=== PATIENT | female | born 1945 | race Caucasian/White ===

== ENCOUNTER 2018-04-07 13:04 | Inpatient (IN) ==
[2018-04-07 15:03] LABS: Albumin 5.5 g/dL (3.5-5.7); Albumin/Globulin Ratio 1.3 (1.1-2.2); Bilirubin,Direct 0.2 mg/dL (0.0-0.2); Bilirubin,Indirect 0.6 mg/dL (0.0-1.2); Bilirubin,Total 0.8 mg/dL (0.3-1.0); Globulin 4.1 g/dL (2.4-3.5); Total Protein 9.6 g/dL (6.4-8.9)
[2018-04-07] MEDS ORDERED: 0.9 % Sodium Chloride 1,000 ML IVC ONE ×2 (15:28→15:57)
[2018-04-07 16:10] LABS: Immature Granulocytes % 1.3 % (0-4)
[2018-04-07 16:11] LABS: Basophils # 0.1 K/mcL (0.0-0.2); Basophils % 0.6 %; Eosinophils % 0.1 %; Hematocrit 33.2 % (35.3-44.9); Hemoglobin 12.6 g/dL (11.5-15.4); Lymphocytes # 0.5 K/mcL (0.6-4.6); Lymphocytes % 5.1 %; Mean Corpuscular Hemoglobin 37.1 pg (28.0-33.3); Mean Corpuscular Volume 97.6 fL (83.0-100.0); Mean Platelet Volume 9.3 fL (9.4-12.4); Monocytes # 0.9 K/mcL (0.0-1.3); Monocytes % 10.4 %; Platelet Count 525 K/mcL (140-400); Red Cell Distribution Width 14.8 % (11.5-14.5); Segmented Neutrophils % 82.5 %
[2018-04-07 16:16] LABS: Neutrophils # 7.4 K/mcL (1.6-8.9)
--- NOTE | 2018-04-07 16:24 | Emergency Department Note ---
Disposition Clinical Impression: Hyponatremia, Acute kidney injury (nontraumatic), Dehydration Nausea and vomiting Qualifiers: Vomiting type: unspecified Vomiting Intractability: non-intractable Qualified Code(s): R11.2 - Nausea with vomiting, unspecified Crohn disease Qualifiers: Gastrointestinal tract location: unspecified location Digestive disease complication type: without complication Qualified Code(s): K50.90 - Crohn's disease, unspecified, without complications Disposition: Admitted As Inpatient Condition: Good Referrals: Yunier Gallego DO [Primary Care Provider] - Forms: ED Satisfaction Letter General Adult HPI - General Chief complaint: ED Nausea/Vomiting/Diarrhea Stated complaint: N/V Time Seen by Provider: 04/07/18 15:24 Source: patient Limitations: no limitations - History of Present Illness HPI Narrative: Patient presents with approximately 10 days of nausea, vomiting and anorexia. Anytime she eats something, he vomits. When she does not eat or drink anything , she retches. She feels weak and fatigued. Has not had lightheadedness, dizziness, syncope, presyncope or confusion. She was recently treated with amoxicillin for a "upper respiratory infection" from urgent care. She continues to have a cough, the other symptoms have relented. She has not had diarrhea. She does have a history of Crohn disease, but her output has been normal. No chest pain, palpitations or shortness of breath. No urinary tract symptoms, although her urine output has significantly decreased. No abdominal pain. No headache or neck pain. Not currently nauseous. Pain Scale: 8 - Related Data Previous Rx's Medication Instructions Recorded Amoxicillin/Clavulanate [Augmentin] 875 mg PO BIDWM 5 Days #10 tablet 04/02/18 Benzonatate [Tessalon] 200 mg PO TID PRN #45 capsule 04/02/18 Cetirizine HCl [Zyrtec] 10 mg PO DAILY #90 tablet 04/02/18 Fluticasone Propionate Nasal 16 gm NS DAILY PRN #1 bottle 04/02/18 [Flonase] Allergies Allergy/AdvReac Type Severity Reaction Status Date / Time No Known Allergies Allergy Verified 04/02/18 14:16 All systems ED: reviewed and negative except as stated. Past Medical History - Past Medical History PMF Narrative: She tells me that she takes Remicaide for her Crohn's disease, and takes vitamins - no other long-term medications. Medical history: Reports: dementia, osteoporosis Surgical history: Reports: non-contributory Psychiatric history: Reports: no psych history - Social History Smoking Status: Current every day smoker Smokeless Tobacco Status: No Alcohol use: Reports: occasionally Drug use: Reports: none Physical Exam Vital signs noted please see nurse's notes. Gen.: Well-developed, very thin patient lying in bed who appears nontoxic. Head: Atraumatic, normocephalic. Eyes: Sclerae anicteric. ENT: Mucous membranes dry. Heart: Mildly tachycardic and regular without appreciable murmur. Lungs: Normal respiratory pattern without respiratory distress, lungs clear to auscultation bilaterally. Abdomen: Soft, nontender, nondistended, no guarding or peritoneal signs. Ostomy is noted. Skin: Warm and dry without rash. Neurologic: Awake, alert with normal speech and mental status. Cranial nerves grossly intact. No focal deficits or lateralizing signs. Psychiatric: Normal mood and affect. Musculoskeletal: No peripheral edema. No signs of trauma or DVT. - General Limitations: no limitations General appearance: alert Course Vital Signs Temperature 97.7 F 04/07/18 13:24 Pulse Rate 106 04/07/18 13:24 Respiratory Rate 16 04/07/18 13:24 Blood Pressure 101/63 04/07/18 13:24 O2 Sat by Pulse Oximetry 94 04/07/18 13:24 Temperature 97.7 F 04/07/18 13:24 Pulse Rate 97 04/07/18 15:38 Respiratory Rate 22 04/07/18 15:38 Blood Pressure 120/80 04/07/18 15:38 O2 Sat by Pulse Oximetry 94 04/07/18 13:24 Oxygen Delivery Oxygen Delivery Room Air Medical Decision Making - MDM Narrative Medical decision making narrative: The patient remained hemodynamically stable during her time in the emergency department. Brown catheter was placed, since she was not producing any urine and we wanted to monitor her urine output given her acute kidney injury. Old records reviewed, she does not have a prior history of hyponatremia or of kidney failure, consistent with the history that she gave me. I started normal saline at 80 mL per hour. Added a magnesium and phosphorus level, which are currently pending. She has had no symptoms of hyponatremia other than the nausea and vomiting, and it is impossible to know whether the nausea and vomiting with lack of by mouth intake was the cause or the effect of her hyponatremia. She has had no change in mentation, no muscle cramps, no seizure activity, etc. I spoke with Dr. Nash environmental services director for nephrology, who agreed with the management at this point, he requested that we keep her on 80 mL per hour of normal saline overnight. I paged the hospitalist to arrange for admission. Critical care time: I was directly primarily involved in the care of this patient for 35 minutes extruding procedures. - Lab Data Result diagrams: 04/07/18 15:14 04/07/18 14:25 Lab Results 04/07/18 04/07/18 04/07/18 Range/Units 14:25 15:14 15:14 WBC 9.0 (4.3-11.1) K/mcL RBC 3.40 L (3.82-4.97) M/mcL Hgb 12.6 (11.5-15.4) g/dL Hct 33.2 L (35.3-44.9) % MCV 97.6 D (83.0-100.0) fL MCH 37.1 H (28.0-33.3) pg MCHC 38.0 H (31.6-35.5) g/dL RDW 14.8 H (11.5-14.5) % Plt Count 525 H (140-400) K/mcL MPV 9.3 L (9.4-12.4) fL Immature Gran % 1.3 (0-4) % Seg Neutrophils % 82.5 % Lymphocytes % 5.1 % Monocytes % 10.4 % Eosinophils % 0.1 % Basophils % 0.6 % Neutrophils # 7.4 (1.6-8.9) K/mcL Lymphocytes # 0.5 L (0.6-4.6) K/mcL Monocytes # 0.9 (0.0-1.3) K/mcL Eosinophils # 0.0 (0.0-0.6) K/mcL Basophils # 0.1 (0.0-0.2) K/mcL Sodium 115 L* (136-145) mEq/L Potassium 4.0 (3.5-5.1) mEq/L Chloride 79 L (98-107) mEq/L Carbon Dioxide 15 L (23-29) mEq/L BUN 128 H (8-23) mg/dL Creatinine 3.12 H (0.60-1.20) mg/dL Est GFR ( Amer) 18 L (> 60) Est GFR (Non-Af Amer) 15 L (> 60) BUN/Creatinine Ratio 41 H (6-26) Glucose 165 H (70-105) mg/dL Calculated Osmolality 285 (280-300) Calcium 11.0 H (8.6-10.3) mg/dL Total Bilirubin 0.8 (0.3-1.0) mg/dL Direct Bilirubin 0.2 (0.0-0.2) mg/dL Indirect Bilirubin 0.6 (0.0-1.2) mg/dL AST 26 (13-39) Units/L ALT 22 (7-52) Units/L Alkaline Phosphatase 61 (34-104) Units/L Serum Total Protein 9.6 H (6.4-8.9) g/dL Albumin 5.5 (3.5-5.7) g/dL Globulin 4.1 H (2.4-3.5) g/dL Albumin/Globulin Ratio 1.3 (1.1-2.2) Lipase 92 H (11-82) Units/L Specimen Rejected MCV Delta
[2018-04-07 16:50] LABS: Magnesium 2.7 mg/dL (1.6-2.6); Phosphorous 8.9 mg/dL (2.7-4.5)
[2018-04-07] MEDS ORDERED: Ipratropium/Albuterol Neb 3 ML IH PRN (17:43)
[2018-04-07] MEDS ORDERED: Acetaminophen 325 MG TABLET PO PRN (17:43)
[2018-04-07] MEDS ORDERED: Ondansetron 4 MG/2 ML VIAL IVP PRN (17:48)
[2018-04-07] MEDS ORDERED: Naloxone 0.4 MG/ML INJ IVP PRN (17:48)
[2018-04-07] MEDS ORDERED: OXYCODONE Oral CONC 10 MG/0.5 ML ORAL.SYG SL PRN ×2 (17:48)
[2018-04-07 17:50] LABS: Bilirubin,Urine Negative (Negative); Blood,Urine Negative (Negative); Clarity,Urine Cloudy (Clear); Color,Urine Yellow (Yellow); Glucose,Urine (UA) Normal (Normal); Ketones,Urine Negative (Negative); Leukocyte Esterase,Urine Negative (Negative); Nitrite,Urine Negative (Negative); Protein,Urine 30 mg/dL (Neg-Trace); Specific Gravity,Urine 1.023 (1.010-1.025); Urobilinogen,Urine Normal (Normal)
--- NOTE | 2018-04-07 17:51 | Internal Med History&Physical ---
Date of Encounter: 04/07/18 Time of Encounter: 17:48 Internal Medicine - H&P: HPI Chief complaint: Nausea and vomiting Admitted From: Emergency Dept History of present illness: Ms. Grey is a 72 year old female with a past medical history of chronic hyponatremia, chronic kidney disease stage III, Crohn's disease, history of ileostomy in March 2010 who came to emergency room complaining of severe nausea vomiting and anorexia for the past 10 days, she has not been able to keep anything down most of those days. Today her sodium is 115. Creatinine has increased from a baseline of 0.85 up to 3.12 today, 3 days ago she started taking amoxicillin for an upper respiratory infection but her symptoms have not improved, she still complaining of yellowish phlegm, chest x-ray shows a left lower lobe pneumonia. Platelets are 525 magnesium 2.7 phosphorus 8.9, calcium 11, patient has been complaining of lower abdominal cramps. No sick contacts or recent traveling, very little output from her ileostomy. Past Med Surg Social Fam HX - Past Medical History Medical history: dementia, osteoporosis, other (Crohn's disease, diverticulosis , chronic kidney disease stage III, chronic hyponatremia, tobacco abuse) Psychiatric history: no psych history - Past Surgical History Surgical History: other (Ileostomy in 2009, rectal fistula) - Social History Smoking Status: Current every day smoker Packs per day: Half pack per day Smokeless Tobacco Status: No Alcohol use: occasionally Drug use: none - Additional Family History Additional family history: Father with CVA Internal Medicine - H&P: Meds Amoxicillin/Clavulanate [Augmentin] 875 mg PO BIDWM 5 Days #10 tablet 04/02/18 [ Rx] Benzonatate [Tessalon] 200 mg PO TID PRN #45 capsule 04/02/18 [Rx] Cetirizine HCl [Zyrtec] 10 mg PO DAILY #90 tablet 04/02/18 [Rx] Fluticasone Propionate Nasal [Flonase] 16 gm NS DAILY PRN #1 bottle 04/02/18 [Rx ] 3 Allergy/AdvReac Type Severity Reaction Status Date / Time No Known Allergies Allergy Verified 04/02/18 14:16 All Systems PM: A 10-system review of systems was performed and is negative for pertinent findings except as documented above in the HPI. Review of systems: History of breath, denies any chest pain, chills, other systems out of the 10 reviewed were negative, no urine analysis having performed - Constitutional Vitals: Temp Pulse Resp BP Pulse Ox 97.7 F 85 16 120/80 97 04/07/18 13:24 04/07/18 17:14 04/07/18 17:14 04/07/18 15:38 04/07/18 17:14 General appearance: Present: A&O X 3 (Very dehydrated), underweight - Head Head exam: Present: atraumatic, normocephalic - Eye Eye exam: Present: PERRL, conjuntiva pink, sclera anicteric Pupils: Present: PERRL - Neck Neck exam general surgery: Present: supple, trachea midline. Absent: lymphadenopathy - Respiratory Respiratory exam: Present: CTAB. Absent: accessory muscle use, rales, rhonchi, wheezes Additional comments: Left basilar crackles - Cardiovascular Cardiovascular exam: Present: RRR, +S1, +S2. Absent: diastolic murmur, gallop, rubs, systolic murmur - GI/Abdominal GI/Abdominal exam: Present: normal bowel sounds, soft, no peritoneal signs. Absent: distended, tenderness Additional comments: Diminished bowel sounds, ileostomy in place - Extremities Exam Extremities exam: Present: warm, radial pulses palpable and symmetrical. Absent : calf tenderness, cyanotic, pedal edema - Neurological Exam Neurological exam: Present: CN II-XII intact, oriented X3, no focal deficits. Absent: pronater drift, facial droop, speech deficit - Skin Skin exam: Present: dry, intact Internal Med - H&P Results - Labs CBC & Chem 7: 04/07/18 15:14 04/07/18 14:25 - Assessment and plan (1) Acute kidney injury (nontraumatic) Current Visit: Yes Status: Acute Assessment and plan: Acute renal failure secondary to severe dehydration due to intractable nausea and vomiting and also community-acquired pneumonia IV fluids, start Levaquin Blood cultures Consider nephrology consult if not improving Order a UA Hydralazine IV as needed for accelerated hypertension Protonix for GI prophylaxis and subcutaneous tenderness heparin for DVT prophylaxis. The patient will be admitted as inpatient, expected to stay more than 2 midnights. DNR CC arrest accepting intubation, time spent on this admission 40 minutes (2) Hyponatremia Current Visit: Yes Status: Acute Assessment and plan: Acute on chronic hyponatremia exacerbated by intractable vomiting Continue normal saline, increase sodium no faster than 0.5 mEq per hour Measure sodium every [address] scan of the abdomen (3) Community acquired pneumonia Current Visit: Yes Status: Acute Qualifiers: Laterality: left Lung location: lower lobe of lung Qualified Code(s): J18.1 - Lobar pneumonia, unspecified organism (4) Hypermagnesemia Current Visit: Yes Status: Acute (5) Crohn disease Current Visit: Yes Status: Acute Assessment and plan: on Imuran and Remicade Qualifiers: Gastrointestinal tract location: unspecified location Digestive disease complication type: without complication Qualified Code(s): K50.90 - Crohn's disease, unspecified, without complications (6) Dehydration Current Visit: Yes Status: Acute (7) Nausea and vomiting Current Visit: Yes Status: Acute Qualifiers: Vomiting type: unspecified Vomiting Intractability: non-intractable Qualified Code(s): R11.2 - Nausea with vomiting, unspecified - Time Spent With Patient Total time spent is greater than 50% in coordination of care (as documented) at patient's floor/unit and/or counseling patient:
[2018-04-07 17:53] LABS: Bacteria,Urine None Seen per hpf (None-Few); Hyaline Casts,Urine None Seen per lpf (None-Few); Squamous Epithelial Cell,Urine Many per lpf (None-Few)
[2018-04-07] MEDS ORDERED: Levofloxacin 750 MG/150 ML 750 MG/150 ML BAG IVPB ONE (18:00)
[2018-04-07 18:07] LABS: RBC,Urine 0-3 per hpf (0-3)
[2018-04-07 20:27] LABS: Troponin I 0.03 ng/mL (< 0.04)
[2018-04-07] MEDS: Nicotine 14 MG PATCH.TD24 TD SCH (21:28)
[2018-04-07] MEDS: Pantoprazole 40 MG VIAL IVP SCH (21:28)
[2018-04-07] MEDS: 0.9 % Sodium Chloride 1,000 ML IVC SCH (21:28)
[2018-04-07] MEDS: *HR* Heparin 5,000 UNIT/ML VIAL SQ SCH (21:28)
[2018-04-07 22:01] LABS: Bilirubin,Urine Negative (Negative); Blood,Urine Negative (Negative); Clarity,Urine Cloudy (Clear); Color,Urine Yellow (Yellow); Glucose,Urine (UA) 100 mg/dL (Normal); Ketones,Urine Negative (Negative); Leukocyte Esterase,Urine Negative (Negative); Nitrite,Urine Negative (Negative); Protein,Urine Trace mg/dL (Neg-Trace); Urobilinogen,Urine Normal (Normal)
[2018-04-07 22:03] LABS: Bacteria,Urine None Seen per hpf (None-Few); Hyaline Casts,Urine None Seen per lpf (None-Few); Squamous Epithelial Cell,Urine Many per lpf (None-Few)
[2018-04-08] MEDS: *HR* Heparin 5,000 UNIT/ML VIAL SQ SCH ×2 (04:37→18:36)
[2018-04-08] MEDS ORDERED: OXYCODONE Oral CONC 10 MG/0.5 ML ORAL.SYG SL PRN (07:35)
[2018-04-08 07:43] LABS: Magnesium 2.1 mg/dL (1.6-2.6); Phosphorous 4.7 mg/dL (2.7-4.5); Potassium 3.5 mEq/L (3.5-5.1)
[2018-04-08 08:36] LABS: Basophils % 0.7 %; Eosinophils # 0.1 K/mcL (0.0-0.6); Eosinophils % 1.1 %; Hematocrit 26.2 % (35.3-44.9); Hemoglobin 9.9 g/dL (11.5-15.4); Immature Granulocytes % 1.5 % (0-4); Lymphocytes # 0.5 K/mcL (0.6-4.6); Lymphocytes % 9.4 %; Mean Corpuscular Hemoglobin 37.1 pg (28.0-33.3); Mean Corpuscular Volume 98.1 fL (83.0-100.0); Mean Platelet Volume 9.2 fL (9.4-12.4); Monocytes # 0.9 K/mcL (0.0-1.3); Monocytes % 16.5 %; Platelet Count 393 K/mcL (140-400); Red Blood Count 2.67 M/mcL (3.82-4.97); Segmented Neutrophils % 70.8 %
[2018-04-08 08:39] LABS: Mean Corpuscular HGB Conc 37.8 g/dL (31.6-35.5); Neutrophils # 3.8 K/mcL (1.6-8.9)
[2018-04-08] MEDS: 0.9 % Sodium Chloride 1,000 ML IVC SCH (09:55)
[2018-04-08] MEDS: Pantoprazole 40 MG VIAL IVP SCH (09:56)
[2018-04-08] MEDS: Ampicillin/Sulbactam 3,000 MG in 0.9 % Sodium Chloride Mini Bag 100 ML IVPB SCH (13:00)
--- NOTE | 2018-04-08 14:48 | Electrocardiograph Report ---
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
--- NOTE | 2018-04-08 15:01 | Nephrology Consult Note ---
Date of Encounter: 04/08/18 Time of Encounter: 14:35 Assessment and Plan (1) JORDYN (acute kidney injury) Current Visit: Yes Status: Acute JORDYN, hx chronic hyponatremia, metabolic acidosis in setting of GI losses. Renal fct and sodium improving, bicarb 10. Will change IV fluids to 0.45 NS with Bicarb. Accurat I&O, Avoid nephrotoxins. Will continue to monitor. (2) Hyponatremia Current Visit: Yes Status: Acute History of Present Illness - Reason for Consult Acute Kidney Injury - History of Present Illness Ms. Grey is a 72 year old female who presented to ER yesterday with nausea and vomiting for past 10 days. She also admitted URI symptoms and states she was seen at urgent care several days ago and placed on Amoxicillin. She has a history of crohns with ileostomy since 2009, on Remicaide. and follows with Dr. Matos. She denies increase in ileostomy output or decrease in urine output. States decreased food intake but drinking large amounts water. She state last emesis yesterday in ER. Initial creat 3.12, today renal fct improved, creat 1.98. Prior labs do not indicate history of CKD. She admits history of chronic hyponatremia but usually runs 131. Initial sodium 115, today 123. Current IV 0.9NS at 75 cc/hr. Urine negative. She denies swelling. She admits remote NSAID use but has been weeks since taking one Ibuprofen. Past Med Surg Social Fam HX - Past Medical History Medical history: dementia, osteoporosis, other Additional medical history: crohn's disease, has ileostomy Psychiatric history: no psych history - Past Surgical History Surgical History: other Additional surgical history: part of small and large bowel removed. - Social History Smoking Status: Current every day smoker Packs per day: Half pack per day Smokeless Tobacco Status: No Alcohol use: occasionally Drug use: none Medications and Allergies Amoxicillin/Clavulanate [Augmentin] 875 mg PO BIDWM 5 Days #10 tablet 04/02/18 [ Rx] Benzonatate [Tessalon] 200 mg PO TID PRN #45 capsule 04/02/18 [Rx] Cetirizine HCl [Zyrtec] 10 mg PO DAILY #90 tablet 04/02/18 [Rx] Fluticasone Propionate Nasal [Flonase] 16 gm NS DAILY PRN #1 bottle 04/02/18 [Rx ] 3 Allergy/AdvReac Type Severity Reaction Status Date / Time No Known Allergies Allergy Verified 04/02/18 14:16 Review of Systems All Systems: reviewed and no additional remarkable complaints except as stated Exam - Vital Signs Vital signs: Initial Vital Signs Temp Pulse Resp BP Pulse Ox 97.7 F 106 16 101/63 94 04/07/18 13:24 04/07/18 13:24 04/07/18 13:24 04/07/18 13:24 04/07/18 13:24 Vital Signs - Last 8 Hours Temp Pulse Resp BP Pulse Ox 04/08/18 12:05 99.0 F 107 20 148/58 94 04/08/18 07:42 98.1 F 83 14 102/57 96 Intake and Output 04/07/18 04/08/18 04/08/18 23:59 07:59 15:59 Intake Total 1000 / 1000 Output Total 850 / 850 Balance -850 / -850 1000 / 1000 Intake: IV Fluids 1000 / 1000 0.9 % Sodium Chloride 1,000 ML 1000 / 1000 @ 75 mls/hr IVC .[id number] [facility] Rx #:[id number] Oral 0 / 0 Output: Stool 250 / 250 Catheter 600 / 600 Other: Meal NPO Percent of Meal Consumed 0% Stool Consistency liquid Stool Color Green Weight 35.3 kg 35.4 kg Blood Glucose* 102 119 Patient Weight 04/08/18 23:59 Weight 35.4 kg - General Appearance General appearance: well-developed, well-nourished, appears started age EENT: mucous membranes moist Neck: no JVD Respiratory: clear Additional Comments: diminished Cardiology: no edema, regular rate, regular rhythm Gastrointestinal: hypoactive bowel sounds, no tenderness Additional Comments: ileostomy bag Integumentary: warm and dry Neurologic: alert and oriented x3 Psychiatric: mood/affect appropriate, cooperative Results - Lab Results 04/08/18 06:38 04/08/18 12:27 Most recent lab results Calcium 9.0 mg/dL (8.6-10.3) 04/08/18 06:38 Phosphorus 4.7 mg/dL (2.7-4.5) H 04/08/18 06:38 Magnesium 2.1 mg/dL (1.6-2.6) 04/08/18 06:38 Consult Discharge Plan - Plan Referrals: Yunier Gallego DO [Primary Care Provider] -
--- NOTE | 2018-04-08 17:44 | Internal Med Progress Note ---
Date of Encounter: 04/08/18 Time of Encounter: 17:40 - Assessment and plan (1) Community acquired pneumonia Current Visit: Yes Status: Acute Assessment and plan: Will continue on Levofloxacin for now. Qualifiers: Laterality: left Lung location: lower lobe of lung Qualified Code(s): J18.1 - Lobar pneumonia, unspecified organism (2) Crohn disease Current Visit: Yes Status: Acute Assessment and plan: not in exacerbation. will continue to monitor. Qualifiers: Gastrointestinal tract location: unspecified location Digestive disease complication type: without complication Qualified Code(s): K50.90 - Crohn's disease, unspecified, without complications (3) Dehydration Current Visit: Yes Status: Acute Assessment and plan: Contiue with IVF hydration. (4) Hypermagnesemia Current Visit: Yes Status: Acute Assessment and plan: Resolved. Mag 2.1 today (5) Nausea and vomiting Current Visit: Yes Status: Acute Assessment and plan: Improved. No recent N/V. Zofran prn Qualifiers: Vomiting type: unspecified Vomiting Intractability: non-intractable Qualified Code(s): R11.2 - Nausea with vomiting, unspecified (6) Hyponatremia Current Visit: Yes Status: Acute Assessment and plan: improving. up from 119 to 123. Could be related to PNA. Will check for legionella Ag. (7) JORDYN (acute kidney injury) Current Visit: Yes Status: Acute Assessment and plan: Renal function improving. Creatinine 3.12 down to 1.98. - Time Spent With Patient Total time spent is greater than 50% in coordination of care (as documented) at patient's floor/unit and/or counseling patient: less than 15 minutes - Subjective Interval history: Patient denies fever, chills, N/V, constipation, or diarrhea. Denies CP or SOB. - Constitutional Vitals: Temp Pulse Resp BP Pulse Ox 97.7 F 124 19 106/67 96 04/08/18 17:26 04/08/18 17:26 04/08/18 17:26 04/08/18 17:26 04/08/18 17:26 General appearance: Present: A&O X 3 (Very dehydrated), underweight - Head Head exam: Present: atraumatic, normocephalic - Eye Eye exam: Present: PERRL, conjuntiva pink, sclera anicteric Pupils: Present: PERRL - Neck Neck exam general surgery: Present: supple, trachea midline. Absent: lymphadenopathy - Respiratory Respiratory exam: Present: CTAB. Absent: accessory muscle use, rales, rhonchi, wheezes - Cardiovascular Cardiovascular exam: Present: RRR, +S1, +S2. Absent: diastolic murmur, gallop, rubs, systolic murmur - GI/Abdominal GI/Abdominal exam: Present: normal bowel sounds, soft, no peritoneal signs. Absent: distended, tenderness - Extremities Exam Extremities exam: Present: warm, radial pulses palpable and symmetrical. Absent : calf tenderness, cyanotic, pedal edema - Neurological Exam Neurological exam: Present: CN II-XII intact, oriented X3, no focal deficits. Absent: pronater drift, facial droop, speech deficit - Skin Skin exam: Present: dry, intact Internal Medicine: Result - Labs CBC & Chem 7: 04/08/18 06:38 04/08/18 12:27 Labs: Short CBC 04/08/18 Range/Units 06:38 WBC 5.4 (4.3-11.1) K/mcL Hgb 9.9 L D (11.5-15.4) g/dL Hct 26.2 L (35.3-44.9) % Plt Count 393 (140-400) K/mcL Neutrophils # 3.8 (1.6-8.9) K/mcL BMP 04/07/18 04/08/18 04/08/18 19:53 00:26 06:38 Sodium 119 L* 118 L* 122 L Potassium Chloride Carbon Dioxide BUN Creatinine Glucose Calcium 04/08/18 04/08/18 04/08/18 06:38 09:04 12:27 Sodium 123 L 124 L 125 L Potassium 3.5 Chloride 96 L Carbon Dioxide 12 L BUN 101 H Creatinine 1.98 H Glucose 86 Calcium 9.0 Cardiac Enzymes 04/07/18 Range/Units 19:53 Troponin I 0.03 (< 0.04) ng/mL Urine 04/07/18 04/07/18 Range/Units 17:40 21:51 Urine Color Yellow Yellow (Yellow) Urine Clarity Cloudy A Cloudy A (Clear) Urine pH 5.0 5.0 (5.0-8.0) pH Units Ur Specific [place] 1.023 1.020 (1.010-1.025) Urine Protein 30 H Trace (Neg-Trace) mg/dL Urine Glucose (UA) Normal 100 H (Normal) mg/dL - EKG Interpretation EKG shows normal: sinus rhythm (moderate T wave abnormality no EKG on record for comparison.) - Impressions Impressions Abdomen/Pelvis CT 04/07/18 20:00 IMPRESSION: 1. No acute findings in the abdomen or pelvis. 2. Tree-in-bud opacities potentially representing infectious or aspiration bronchiolitis in both lung bases but predominantly in the lower lobes. 3. Consolidative opacities in the lower lobes at least in part representing atelectasis, possibly with superimposed pneumonia especially on the left. D/ / Boone Gutierrez MD / Boone Gutierrez MD Interpreting Provider: Boone Gutierrez MD - Diagnostic Studies CT scan - abdomen Additional comments: 04/07/2018 IMPRESSION: 1. No acute findings in the abdomen or pelvis. 2. Tree-in-bud opacities potentially representing infectious or aspiration bronchiolitis in both lung bases but predominantly in the lower lobes. 3. Consolidative opacities in the lower lobes at least in part representing atelectasis, possibly with superimposed pneumonia especially on the left. - VTE Deep Vein Thrombosis/Pulmonary Embolism Present on Admission: No Consult Discharge Plan - Plan Referrals: Yunier Gallego DO [Primary Care Provider] -
[2018-04-08] MEDS: Sodium Bicarbonate 100 MEQ in 0.45 % Sodium Chloride 1,000 ML IVC SCH (18:36)
--- NOTE | 2018-04-08 19:00 | Event Note ---
Date of Encounter: 04/08/18 Time of Encounter: 19:00 informed by nurse that tele monitor reading ischemia. Pt denies CP or SOB and vitals are stable BP 126/70, HR 86, RR 15. Will check EKG 12 lead and Stat troponin. Will cycle troponin
[2018-04-09] MEDS: Nicotine 14 MG PATCH.TD24 TD SCH ×2 (00:07→20:55)
[2018-04-09] MEDS: Ampicillin/Sulbactam 3,000 MG in 0.9 % Sodium Chloride Mini Bag 100 ML IVPB SCH ×2 (00:08→14:00)
[2018-04-09] MEDS: Sodium Bicarbonate 100 MEQ in 0.45 % Sodium Chloride 1,000 ML IVC SCH ×2 (06:40→19:49)
[2018-04-09] MEDS: *HR* Heparin 5,000 UNIT/ML VIAL SQ SCH ×2 (06:43→18:01)
[2018-04-09 08:18] LABS: Mean Platelet Volume 8.8 fL (9.4-12.4)
[2018-04-09 08:19] LABS: Basophils # 0.1 K/mcL (0.0-0.2); Basophils % 1.2 %; Eosinophils % 0.7 %; Hematocrit 27.3 % (35.3-44.9); Hemoglobin 10.1 g/dL (11.5-15.4); Immature Granulocytes % 1.6 % (0-4); Lymphocytes # 0.5 K/mcL (0.6-4.6); Mean Corpuscular Hemoglobin 37.3 pg (28.0-33.3); Mean Corpuscular Volume 100.7 fL (83.0-100.0); Monocytes # 1.1 K/mcL (0.0-1.3); Monocytes % 26.2 %; Platelet Count 405 K/mcL (140-400); Red Blood Count 2.71 M/mcL (3.82-4.97); Segmented Neutrophils % 59.3 %
[2018-04-09 08:21] LABS: Neutrophils # 2.6 K/mcL (1.6-8.9)
[2018-04-09 08:35] LABS: Reactive Lymphocytes Present (Not Present)
[2018-04-09 08:43] LABS: Albumin 3.5 g/dL (3.5-5.7); Albumin/Globulin Ratio 1.3 (1.1-2.2); Bilirubin,Total 0.6 mg/dL (0.3-1.0); Calcium 9.1 mg/dL (8.6-10.3); Globulin 2.7 g/dL (2.4-3.5); Potassium 2.9 mEq/L (3.5-5.1); Total Protein 6.2 g/dL (6.4-8.9)
--- NOTE | 2018-04-09 09:07 | Nephrology Progress Note ---
Date of Encounter: 04/09/18 Time of Encounter: 08:55 - Assessment and Plan (1) JORDYN (acute kidney injury) Current Visit: Yes Status: Acute JORDYN, hx chronic hyponatremia, metabolic acidosis in setting of GI losses. Renal fct improving, creat 1.18, sodium 136 bicarb 20. K 2.9, will order K rider. Will continue IV fluids to 0.45 NS with Bicarb. Accurate I&O, Avoid nephrotoxins. Will continue to monitor. (2) Hyponatremia Current Visit: Yes Status: Acute Subjective Interval history: Laying in bed, watching tv. States feeling better. Denies further emesis. Documented urine output 850cc Objective - Vital Signs Vital signs: Vital Signs Temp Pulse Resp BP Pulse Ox 04/09/18 07:02 98.4 F 78 15 117/61 96 04/09/18 03:57 98 F 82 14 107/65 96 04/09/18 01:01 97.8 F 96 14 107/66 95 04/08/18 22:33 98.1 F 101 15 111/67 96 04/08/18 17:26 97.7 F 124 19 106/67 96 04/08/18 12:05 99.0 F 107 20 148/58 94 Intake and Output 04/08/18 04/09/18 04/09/18 23:59 07:59 15:59 Intake Total 1000 / 1000 100 / 100 Output Total 1100 / 1100 Balance 1000 / 1000 -1000 / -1000 Intake: IV Fluids 1000 / 1000 100 / 100 0.9 % Sodium Chloride 1,000 ML 1000 / 1000 @ 75 mls/hr IVC .[id number] [facility] Rx #:[id number] Unasyn 3,000 MG In 0.9 % Sodium 100 / 100 Chloride (Mini-Bag +) 100 ML @ 200 mls/hr IVPB Q12H [facility] Rx#: [id number] Output: Urine 750 / 750 Catheter 350 / 350 Other: Weight 34.3 kg Blood Glucose* 89 92 Patient Weight 04/09/18 23:59 Weight 34.3 kg - General Appearance General appearance: Present: well-developed, appears started age, frail EENT: Present: mucous membranes moist Neck: Present: no JVD Respiratory: Present: clear Cardiology: Present: no edema, regular rate, regular rhythm Gastrointestinal: Present: hypoactive bowel sounds, no tenderness Additional Comments: ileostomy Integumentary: Present: warm and dry Neurologic: Present: alert and oriented x3 - Lab 04/09/18 08:06 04/09/18 08:06 Most recent lab results Calcium 9.1 mg/dL (8.6-10.3) 04/09/18 08:06 Phosphorus 4.7 mg/dL (2.7-4.5) H 04/08/18 06:38 Magnesium 2.1 mg/dL (1.6-2.6) 04/08/18 06:38 - VTE Deep Vein Thrombosis/Pulmonary Embolism Present on Admission: No Consult Discharge Plan - Plan Referrals: Yunier Gallego DO [Primary Care Provider] -
--- NOTE | 2018-04-09 09:52 | Internal Med Progress Note ---
Date of Encounter: 04/09/18 Time of Encounter: 09:50 - Assessment and plan (1) Community acquired pneumonia Current Visit: Yes Status: Acute Assessment and plan: Will continue on Levofloxacin and Unasyn for now. Qualifiers: Laterality: left Lung location: lower lobe of lung Qualified Code(s): J18.1 - Lobar pneumonia, unspecified organism (2) Crohn disease Current Visit: Yes Status: Acute Assessment and plan: Not in exacerbation. will continue to monitor. MAnages her own ostomy bag. Qualifiers: Gastrointestinal tract location: unspecified location Digestive disease complication type: without complication Qualified Code(s): K50.90 - Crohn's disease, unspecified, without complications (3) Dehydration Current Visit: Yes Status: Acute Assessment and plan: Improved on IVF. (4) Hypermagnesemia Current Visit: Yes Status: Acute Assessment and plan: corrected (5) Nausea and vomiting Current Visit: Yes Status: Acute Assessment and plan: Resolved. Pt denies any N/V today. Qualifiers: Vomiting type: unspecified Vomiting Intractability: non-intractable Qualified Code(s): R11.2 - Nausea with vomiting, unspecified (6) Hyponatremia Current Visit: Yes Status: Acute (7) JORDYN (acute kidney injury) Current Visit: Yes Status: Acute Assessment and plan: Resolving, Bun 128 on admission down to 58. Cr 3.12 on admission down to 1.18. Nephrology on board. Will continue to monitor renal function. (8) Abnormal EKG Current Visit: Yes Status: Acute Assessment and plan: Will obtain echo if one not done in past 6 months. Will consider consulting cardiology. ALso noted is troponin 0.05 now 0.10. Pt denies CP or SOB. (9) Hypokalemia Current Visit: Yes Status: Acute Assessment and plan: K replacement ordered today. Will recheck in am. - Time Spent With Patient Total time spent is greater than 50% in coordination of care (as documented) at patient's floor/unit and/or counseling patient: - Subjective Interval history: Patient denies fever, chills, N/V, constipation, or diarrhea. Denies CP or SOB. empties her own ostomy prn. - Constitutional Vitals: Temp Pulse Resp BP Pulse Ox 98.4 F 78 15 117/61 96 04/09/18 07:02 04/09/18 07:02 04/09/18 07:02 04/09/18 07:02 04/09/18 07:02 General appearance: Present: A&O X 3 (Very dehydrated), underweight - Head Head exam: Present: atraumatic, normocephalic - Eye Eye exam: Present: PERRL, conjuntiva pink, sclera anicteric Pupils: Present: PERRL - Neck Neck exam general surgery: Present: supple, trachea midline. Absent: lymphadenopathy - Respiratory Respiratory exam: Present: CTAB. Absent: accessory muscle use, rales, rhonchi, wheezes - Cardiovascular Cardiovascular exam: Present: RRR, +S1, +S2. Absent: diastolic murmur, gallop, rubs, systolic murmur - GI/Abdominal GI/Abdominal exam: Present: normal bowel sounds, soft, no peritoneal signs. Absent: distended, tenderness - Extremities Exam Extremities exam: Present: warm, radial pulses palpable and symmetrical. Absent : calf tenderness, cyanotic, pedal edema - Neurological Exam Neurological exam: Present: CN II-XII intact, oriented X3, no focal deficits. Absent: pronater drift, facial droop, speech deficit - Skin Skin exam: Present: dry, intact Internal Medicine: Result - Labs CBC & Chem 7: 04/09/18 08:06 04/09/18 08:06 Labs: Short CBC 04/09/18 Range/Units 08:06 WBC 4.3 (4.3-11.1) K/mcL Hgb 10.1 L (11.5-15.4) g/dL Hct 27.3 L (35.3-44.9) % Plt Count 405 H (140-400) K/mcL Neutrophils # 2.6 (1.6-8.9) K/mcL BMP 04/08/18 04/09/18 12:27 08:06 Sodium 125 L 136 D Potassium 2.9 L Chloride 101 Carbon Dioxide 20 L BUN 58 H Creatinine 1.18 Glucose 82 Calcium 9.1 Cardiac Enzymes 04/08/18 04/09/18 04/09/18 Range/Units 19:15 01:26 07:35 Troponin I 0.05 H* 0.11 H* 0.10 H* (< 0.04) ng/mL Liver Function 04/09/18 Range/Units 08:06 Total Bilirubin 0.6 (0.3-1.0) mg/dL AST 19 (13-39) Units/L ALT 13 (7-52) Units/L Alkaline Phosphatase 38 (34-104) Units/L Albumin 3.5 (3.5-5.7) g/dL - VTE Deep Vein Thrombosis/Pulmonary Embolism Present on Admission: No Consult Discharge Plan - Plan Referrals: Yunier Gallego DO [Primary Care Provider] -
--- NOTE | 2018-04-09 10:53 | Internal Med Progress Note ---
Date of Encounter: 04/09/18 - Assessment and plan (1) Hyponatremia Current Visit: Yes Status: Acute Assessment and plan: Acute on chronic hyponatremia exacerbated by intractable vomiting Continue normal saline, increase sodium no faster than 0.5 mEq per hour Measure sodium every [address] scan of the abdomen (2) Acute kidney injury (nontraumatic) Current Visit: Yes Status: Acute Assessment and plan: Acute renal failure secondary to severe dehydration due to intractable nausea and vomiting and also community-acquired pneumonia IV fluids, start Levaquin Blood cultures Consider nephrology consult if not improving Order a UA Hydralazine IV as needed for accelerated hypertension Protonix for GI prophylaxis and subcutaneous tenderness heparin for DVT prophylaxis. The patient will be admitted as inpatient, expected to stay more than 2 midnights. DNR CC arrest accepting intubation, time spent on this admission 40 minutes (3) Nausea and vomiting Current Visit: Yes Status: Acute Qualifiers: Vomiting type: unspecified Vomiting Intractability: non-intractable Qualified Code(s): R11.2 - Nausea with vomiting, unspecified (4) Dehydration Current Visit: Yes Status: Acute (5) Crohn disease Current Visit: Yes Status: Acute Qualifiers: Gastrointestinal tract location: unspecified location Digestive disease complication type: without complication Qualified Code(s): K50.90 - Crohn's disease, unspecified, without complications (6) Community acquired pneumonia Current Visit: Yes Status: Acute Qualifiers: Laterality: left Lung location: lower lobe of lung Qualified Code(s): J18.1 - Lobar pneumonia, unspecified organism (7) Hypermagnesemia Current Visit: Yes Status: Acute - Time Spent With Patient Total time spent is greater than 50% in coordination of care (as documented) at patient's floor/unit and/or counseling patient: - Constitutional Vitals: Temp Pulse Resp BP Pulse Ox 98.4 F 78 15 117/61 96 04/09/18 07:02 04/09/18 07:02 04/09/18 07:02 04/09/18 07:02 04/09/18 07:02 General appearance: Present: A&O X 3 (Very dehydrated), underweight Internal Medicine: Result - Labs CBC & Chem 7: 04/09/18 08:06 04/09/18 08:06 Labs: Short CBC 04/09/18 Range/Units 08:06 WBC 4.3 (4.3-11.1) K/mcL Hgb 10.1 L (11.5-15.4) g/dL Hct 27.3 L (35.3-44.9) % Plt Count 405 H (140-400) K/mcL Neutrophils # 2.6 (1.6-8.9) K/mcL BMP 04/08/18 04/09/18 12:27 08:06 Sodium 125 L 136 D Potassium 2.9 L Chloride 101 Carbon Dioxide 20 L BUN 58 H Creatinine 1.18 Glucose 82 Calcium 9.1 Cardiac Enzymes 04/08/18 04/09/18 04/09/18 Range/Units 19:15 01:26 07:35 Troponin I 0.05 H* 0.11 H* 0.10 H* (< 0.04) ng/mL Liver Function 04/09/18 Range/Units 08:06 Total Bilirubin 0.6 (0.3-1.0) mg/dL AST 19 (13-39) Units/L ALT 13 (7-52) Units/L Alkaline Phosphatase 38 (34-104) Units/L Albumin 3.5 (3.5-5.7) g/dL - VTE Deep Vein Thrombosis/Pulmonary Embolism Present on Admission: No Consult Discharge Plan - Plan Referrals: Yunier Gallego DO [Primary Care Provider] -
[2018-04-09] MEDS: Pantoprazole 40 MG VIAL IVP SCH (12:50)
--- NOTE | 2018-04-09 14:43 | Cardiology Consult Note ---
Date of Encounter: 04/09/18 Time of Encounter: 14:30 Assessment and Plan (1) Community acquired pneumonia Current Visit: Yes Status: Acute Per cardiology: -Admitted with CAP. -ON ATB. -Management per primary service. Qualifiers: Laterality: left Lung location: lower lobe of lung Qualified Code(s): J18.1 - Lobar pneumonia, unspecified organism (2) JORDYN (acute kidney injury) Current Visit: Yes Status: Acute Per cardiology: -Creatinine 3.12 on admission, improved currently. -Nephrology following. -ELectrolyte imbalances noted. -Management per primary service. (3) PAF (paroxysmal atrial fibrillation) Current Visit: Yes Status: Acute Per cardiology: -ECG 04/08/18 191 with atrial fibrillation. Denies previous history of a.fib. -TTE pending. -K 2.9, replaced per primary service. TSH normal. Magnesium normal. -[id number] score 2 (age, gender). Recommend chcf antiocoagulation. 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 (4) Elevated troponin Current Visit: Yes Status: Acute Per cardiology: -Troponins 0.03, 0.05, 0.11, 0.1 in the setting of pneumonia, JORDYN. -Denies chest pain. -ECG with -No previous cardiac testing to review. -TTE pending. -Do not suspect NSTEMI, suspect demand ischemia related to above. NO cardiac rehab consult warranted. -Will start ASA, statin, BB. -Further recommendations pending TTE. Discussion w patient/family: The assessment and plan as outlined above was discussed with the patient who expressed understanding and agreement. All questions were answered. Thank you for involving us in the care of your patient. Please call with any questions. Discussed and reviewed with . History of Present Illness Consult date: 04/09/18 Requesting physician: Tonie Cornell Consult reason: abnormal ECG Chief complaint: shortness of breath History of present illness: Ms. Grey is a 72 year old female with a relevant past medical history of chrons disease s/p resection and ileostomy, tobacco abuse who presented to [facility] with feeling "sick" for 10 days. Patient reports cough and increased shortness of breath. Patient denies chest pain. Patient denies previous cardiac history. Denies previous cardiac testing. Past Med Surg Social Fam HX - Past Medical History Attestation: Yes The following information was validated with the patient. Source: patient, old records reviewed Medical history: dementia, osteoporosis, other Additional medical history: crohn's disease, has ileostomy Psychiatric history: no psych history - Past Surgical History Surgical History: other Additional surgical history: part of small and large bowel removed. - Social History Smoking Status: Current every day smoker Packs per day: Half pack per day Smokeless Tobacco Status: No Alcohol use: occasionally Drug use: none Medications and Allergies Amoxicillin/Clavulanate [Augmentin] 875 mg PO BIDWM 5 Days #10 tablet 04/02/18 [ Rx] Benzonatate [Tessalon] 200 mg PO TID PRN #45 capsule 04/02/18 [Rx] Cetirizine HCl [Zyrtec] 10 mg PO DAILY #90 tablet 04/02/18 [Rx] Fluticasone Propionate Nasal [Flonase] 16 gm NS DAILY PRN #1 bottle 04/02/18 [Rx ] 3 Allergy/AdvReac Type Severity Reaction Status Date / Time No Known Allergies Allergy Verified 04/02/18 14:16 All Systems Review: The remainder of the systems were reviewed and are negative - Cardiovascular Cardiovascular: as per HPI, dyspnea at rest, dyspnea on exertion - Respiratory Respiratory: cough Physical Examination Vital Signs, Last 4 Hours Temp Pulse Resp BP Pulse Ox 04/09/18 10:51 98.1 F 94 15 110/61 96 General: Conversant, No Apparent Distress HEENT: Atraumatic, Normocephaly, Mucus Membranes Moist Neck: No JVD, Normal carotid pulses Cardiac: Reg Rate and Rhythm, Normal S1 and S2, No Murmur Lungs: Normal Breath Sounds, No Wheeze, Rales, Rhonchi Neuro: Alert and responsive, No focal deficits noted Abdomen: Soft, Non-Tender Skin: No rashes noted on visualized skin Musculoskeletal: No Chest Wall Tenderness Extremities: No Clubbing, No Cyanosis, No Edema, Normal Pulses Results 04/09/18 08:06 04/09/18 08:06 Lab Results Active Medications Acetaminophen (Tylenol) 650 mg PO Q4HR PRN PRN Reason: fever and mild pain Stop: 10/07/18 17:44 Albuterol/Ipratropium (Duoneb) 3 ml IH [id number] PRN; Protocol PRN Reason: Shortness Of Breath/Wheezing Stop: 10/07/18 17:44 Heparin Sodium (Porcine) (Heparin) 5,000 unit SQ Q12HCO [facility] Stop: 10/07/18 18:01 Last Admin: 04/09/18 06:43 Dose: 5,000 unit Hydralazine HCl (Hydralazine) 10 mg IVP Q6HR PRN PRN Reason: Hypertension Stop: 10/07/18 17:44 Ampicillin Sodium/Sulbactam Sodium 3,000 mg/ Sodium Chloride 100 mls @ 200 mls/ hr IVPB Q12H [facility] Stop: 10/08/18 11:31 Last Infusion: 04/09/18 02:17 Dose: Infused Sodium Bicarbonate 100 meq/ (Sodium Chloride) 1,100 mls @ 75 mls/hr IVC .[id number] [facility] Stop: 10/08/18 15:01 Last Admin: 04/09/18 06:40 Dose: Not Given Naloxone HCl (Narcan) 0.4 mg IVP Q2MIN PRN PRN Reason: SEE COMMENTS Stop: 10/07/18 17:49 Nicotine (Nicoderm) 14 mg TD Q24H [facility] PRN Reason: Protocol Stop: 10/07/18 19:16 Last Admin: 04/09/18 00:07 Dose: 14 mg Ondansetron HCl (Zofran) 4 mg IVP Q8HR PRN PRN Reason: Nausea And Vomiting Stop: 10/07/18 17:49 Oxycodone HCl (Oxycodone Oral Conc) 10 mg SL Q4H PRN; Protocol PRN Reason: Severe Pain Stop: 10/07/18 17:49 Oxycodone HCl (Oxycodone Oral Conc) 5 mg SL Q4H PRN; Protocol PRN Reason: Moderate Pain Stop: 10/07/18 17:49 Pantoprazole Sodium (Protonix) 40 mg IVP DAILY [facility] Stop: 10/07/18 17:46 Last Admin: 04/09/18 12:50 Dose: 40 mg Laboratory Tests 04/07/18 04/07/18 04/08/18 14:25 19:53 06:38 Hgb Potassium Creatinine 3.12 H Magnesium 2.1 Troponin I 0.03 04/08/18 04/09/18 04/09/18 19:15 01:26 07:35 Hgb Potassium Creatinine Magnesium Troponin I 0.05 H* 0.11 H* 0.10 H* 04/09/18 04/09/18 08:06 08:06 Hgb 10.1 L Potassium 2.9 L Creatinine 1.18 Magnesium Troponin I - Imaging and Cardiology Chest Xray: report reviewed Echo: pending - EKG Interpretation EKG results cardiology: personally reviewed (ECG 04/07/18 with SR, HR 85.), other (Telemetry reviewed with average HR previous 12 hours noted to be 98, SR.) Consult Discharge Plan - Plan Referrals: Yunier Gallego DO [Primary Care Provider] -
--- NOTE | 2018-04-09 15:55 | Event Note ---
Date of Encounter: 04/09/18 Time of Encounter: 15:51 Unable to edit consultation performed earlier today. Please consider this manifestation to that consultation. I have personally performed a face to face evaluation on this patient. I have reviewed and agree with the care plan. History and Exam by me shows: Consultation requested regarding abnormal ECG. Patient currently being treated for pneumonia. ECGs reviewed and demonstrates sinus rhythm, atrial fibrillation. Patient reports a history of palpitations, but has never been officially diagnosed with any arrhythmias. CHADS-VASc score 2. Although we would ideally recommend anticoagulation, patient reports a history of anemia/GI bleeds on a baby aspirin due to Crohn's disease. At this time, recommend BB. She does not appears to be an ideal candidate for aspirin or AC due to her history of GI bleed. TTE pending. Thanks, Angelito Ponce DO, FACC
[2018-04-09] MEDS ORDERED: Levofloxacin 500 MG/100 ML 500 MG/100 ML BAG IVPB SCH (18:00)
[2018-04-09] MEDS: Metoprolol XL (24 HR) Succ 25 MG TAB.ER.24H PO SCH (18:03)
[2018-04-10] MEDS ORDERED: Sodium Bicarbonate 100 MEQ in 0.45 % Sodium Chloride 1,000 ML IVC SCH (00:15)
[2018-04-10] MEDS: Ampicillin/Sulbactam 3,000 MG in 0.9 % Sodium Chloride Mini Bag 100 ML IVPB SCH ×3 (00:18→22:28)
[2018-04-10] MEDS: *HR* Heparin 5,000 UNIT/ML VIAL SQ SCH (05:44)
[2018-04-10 07:37] LABS: BUN/Creatinine Ratio 53 (6-26); Blood Urea Nitrogen 45 mg/dL (8-23); Calcium 8.4 mg/dL (8.6-10.3); Carbon Dioxide 25 mEq/L (23-29); Chloride 103 mEq/L (98-107); Glucose 108 mg/dL (70-105); Osmolality,Calculated 294 (280-300); Potassium 3.3 mEq/L (3.5-5.1); Sodium 136 mEq/L (136-145); eGFR For African Americans > 60 (> 60); eGFR For Non-African Americans > 60 (> 60)
[2018-04-10] MEDS: Metoprolol XL (24 HR) Succ 25 MG TAB.ER.24H PO SCH (08:09)
[2018-04-10] MEDS: Pantoprazole 40 MG VIAL IVP SCH ×2 (08:09→18:17)
[2018-04-10 08:39] LABS: Basophils # 0.1 K/mcL (0.0-0.2); Eosinophils # 0.1 K/mcL (0.0-0.6); Eosinophils % 2.5 %; Hematocrit 23.9 % (35.3-44.9); Hemoglobin 8.9 g/dL (11.5-15.4); Immature Granulocytes % 1.5 % (0-4); Lymphocytes # 0.8 K/mcL (0.6-4.6); Lymphocytes % 16.9 %; Mean Corpuscular Hemoglobin 37.9 pg (28.0-33.3); Mean Corpuscular Volume 101.7 fL (83.0-100.0); Mean Platelet Volume 8.9 fL (9.4-12.4); Monocytes % 20.3 %; Neutrophils # 2.8 K/mcL (1.6-8.9); Platelet Count 387 K/mcL (140-400); Red Blood Count 2.35 M/mcL (3.82-4.97); Red Cell Distribution Width 14.9 % (11.5-14.5); Segmented Neutrophils % 57.8 %
[2018-04-10 08:41] LABS: Mean Corpuscular HGB Conc 37.2 g/dL (31.6-35.5)
[2018-04-10 09:00] LABS: Platelet Estimate Normal (Normal)
[2018-04-10] MEDS ORDERED: Aspirin Enteric Coated 81 MG Tablet PO SCH (09:00)
--- NOTE | 2018-04-10 09:48 | Cardiology Progress Note ---
Date of Encounter: 04/10/18 Time of Encounter: 09:00 Assessment and Plan (1) Community acquired pneumonia Current Visit: Yes Status: Acute Per cardiology: -Admitted with CAP. -ON ATB. -Management per primary service. Qualifiers: Laterality: left Lung location: lower lobe of lung Qualified Code(s): J18.1 - Lobar pneumonia, unspecified organism (2) JORDYN (acute kidney injury) Current Visit: Yes Status: Acute Per cardiology: -Creatinine 3.12 on admission, improved currently. -Nephrology following. -ELectrolyte imbalances noted. -Management per primary service. (3) PAF (paroxysmal atrial fibrillation) Current Visit: Yes Status: Acute Per cardiology: -ECG 04/08/181913 with atrial fibrillation. Denies previous history of a.fib. -Qdvok2whrb score 2 (age, gender). Ideally would be on chcf anticoagulation , however reports had significant GI bleed while on ASA 81mg with her chrons. -On BB, average HR 91. -TTE with LVEF preserved, no segmental wall motion abnormalities. -Cardiology will sign off and will follow in outpatient setting. Follow up set. (4) Elevated troponin Current Visit: Yes Status: Acute Per cardiology: -Troponins 0.03, 0.05, 0.11, 0.1 in the setting of pneumonia, JORDYN. -Denies chest pain. -ECG with a.fib. -No previous cardiac testing to review. -TTE with LVEF 65-70%, mild diastolic dysfunction, mildly dilated RV with normal function, mild TR, no segmental wall motion abnormalities. -On BB, statin. Not on asa due to previous significant GI bleed on asa. -Do not suspect NSTEMI, suspect demand ischemia related to above. NO cardiac rehab consult warranted. Discussion w patient/family: The assessment and plan as outlined above was discussed with the patient who expressed understanding and agreement. All questions were answered. Thank you for involving us in the care of your patient. Please call with any questions. Discussed and reviewed with . Subjective Principal diagnosis: Pneumonia Interval history: Patient reports she feels better today. Denies complaints. Objective Vital Signs, Last 4 Hours Temp Pulse Resp BP Pulse Ox 04/10/18 08:19 96 04/10/18 06:53 97.9 F 97 16 112/68 96 General: Conversant, No Apparent Distress HEENT: Atraumatic, Normocephaly, Mucus Membranes Moist Neck: No JVD, Normal carotid pulses Cardiac: Reg Rate and Rhythm, Normal S1 and S2, No Murmur Lungs: Normal Breath Sounds, No Wheeze, Rales, Rhonchi Neuro: Alert and responsive, No focal deficits noted Abdomen: Soft, Non-Tender Skin: No rashes noted on visualized skin Musculoskeletal: No Chest Wall Tenderness Extremities: No Clubbing, No Cyanosis, No Edema, Normal Pulses Results 04/10/18 08:03 04/10/18 06:14 Lab Results Impressions Echocardiogram 04/09/18 09:49 Impressions: LVEF 65-70%. Normal LV chamber size, wall thickness and function. Mild left ventricular diastolic dysfunction. Mildly dilated right ventricle with normal function. Mild tricuspid regurgitation. No pulmonary hypertension. Left Ventricular Wall Motion: Rest Echo Findings All wall segments showed normal motion. Findings: Study Quality * Technically adequate exam. ECG Findings * Normal sinus rhythm. Left Ventricle * LVEF 65-70%. * Normal LV chamber size, wall thickness and function. * Mild left ventricular diastolic dysfunction. Right Ventricle * Mildly dilated right ventricle with normal function. Left Atrium * Normal left atrial size. Right Atrium * Mildly dilated right atrium. Aortic Valve * Aortic valve not well visualized. * No aortic regurgitation. * No aortic stenosis. Mitral Valve * Normal mitral valve structure and function. * No mitral regurgitation. * No mitral stenosis. Tricuspid Valve * Normal tricuspid valve structure. * Mild tricuspid regurgitation. * No pulmonary hypertension. Pulmonic Valve * Pulmonic valve not well visualized. * No pulmonic regurgitation. Aorta * Normally sized aortic root. Pericardium * The pericardium appears normal. IVC * Normal IVC dimensions and inspiratory collapse. Pulmonary Artery * Normal visualized portions of the main pulmonary artery. Active Medications Acetaminophen (Tylenol) 650 mg PO Q4HR PRN PRN Reason: fever and mild pain Stop: 10/07/18 17:44 Albuterol/Ipratropium (Duoneb) 3 ml IH [id number] PRN; Protocol PRN Reason: Shortness Of Breath/Wheezing Stop: 10/07/18 17:44 Atorvastatin Calcium (Lipitor) 40 mg PO HS [facility] Stop: 10/09/18 21:01 Last Admin: 04/09/18 20:55 Dose: 40 mg Heparin Sodium (Porcine) (Heparin) 5,000 unit SQ Q12HCO [facility] Stop: 10/07/18 18:01 Last Admin: 04/10/18 05:44 Dose: 5,000 unit Hydralazine HCl (Hydralazine) 10 mg IVP Q6HR PRN PRN Reason: Hypertension Stop: 10/07/18 17:44 Ampicillin Sodium/Sulbactam Sodium 3,000 mg/ Sodium Chloride 100 mls @ 200 mls/ hr IVPB Q12H [facility] Stop: 10/08/18 11:31 Last Admin: 04/10/18 00:18 Dose: 200 mls/hr Metoprolol Succinate (Toprol Xl) 12.5 mg PO DAILY [facility] Stop: 10/09/18 15:01 Last Admin: 04/10/18 08:09 Dose: 12.5 mg Naloxone HCl (Narcan) 0.4 mg IVP Q2MIN PRN PRN Reason: SEE COMMENTS Stop: 10/07/18 17:49 Nicotine (Nicoderm) 14 mg TD Q24H [facility] PRN Reason: Protocol Stop: 10/07/18 19:16 Last Admin: 04/09/18 20:55 Dose: 14 mg Omeprazole (Prilosec) 40 mg PO DAILY@0730 [facility] PRN Reason: Protocol Stop: 10/11/18 07:31 Ondansetron HCl (Zofran) 4 mg IVP Q8HR PRN PRN Reason: Nausea And Vomiting Stop: 10/07/18 17:49 Last Admin: 04/10/18 08:09 Dose: 4 mg Oxycodone HCl (Oxycodone Oral Conc) 10 mg SL Q4H PRN; Protocol PRN Reason: Severe Pain Stop: 10/07/18 17:49 Oxycodone HCl (Oxycodone Oral Conc) 5 mg SL Q4H PRN; Protocol PRN Reason: Moderate Pain Stop: 10/07/18 17:49 Laboratory Tests 04/09/18 04/10/18 04/10/18 08:06 06:14 08:03 Hgb 10.1 L 8.9 L Creatinine 0.85 - Imaging and Cardiology Chest Xray: report reviewed Echo: report reviewed - EKG Interpretation EKG results cardiology: other (Telemetry reviewed with average HR previous 12 hours noted to be 91, SR. PVCs, PACs, and PAF noted.) - VTE Deep Vein Thrombosis/Pulmonary Embolism Present on Admission: No Consult Discharge Plan - Plan Referrals: Yunier Gallego DO [Primary Care Provider] -
--- NOTE | 2018-04-10 10:19 | Nephrology Progress Note ---
Date of Encounter: 04/10/18 Time of Encounter: 10:05 - Assessment and Plan (1) JORDYN (acute kidney injury) Current Visit: Yes Status: Acute JORDYN, hx chronic hyponatremia, metabolic acidosis in setting of GI losses. Renal fct normal, creat 0.85, sodium 136 bicarb 25. K 3.3, will order K rider. Will stop IV fluids. Accurate I&O, Avoid nephrotoxins. Will sign off, call again if needed. (2) Hyponatremia Current Visit: Yes Status: Acute Subjective Principal diagnosis: Pneumonia Interval history: Laying in bed, watching tv. States feeling better. Denies further emesis. Documented urine output 1350cc Objective - Vital Signs Vital signs: Vital Signs Temp Pulse Resp BP Pulse Ox 04/10/18 08:19 96 04/10/18 06:53 97.9 F 97 16 112/68 96 04/10/18 04:52 98.1 F 84 16 118/72 95 04/10/18 00:35 98.5 F 85 20 115/64 93 04/09/18 19:38 98.5 F 81 18 127/67 96 04/09/18 16:04 99.2 F 79 15 109/56 96 04/09/18 10:51 98.1 F 94 15 110/61 96 Intake and Output 04/09/18 04/10/18 04/10/18 23:59 07:59 15:59 Intake Total 1340 / 1340 0 / 0 Output Total 0 / 0 1100 / 1100 400 / 400 Balance 1340 / 1340 -1100 / -1100 -400 / -400 Intake: IV Fluids 1100 / 1100 Sodium Bicarbonate 100 MEQ In 0 1100 / 1100 .45% Sodium Chloride 1000 Ml 1000 Ml 1,000 ML @ 75 mls/hr IVC .[id number] [facility] Rx#:[id number] Oral 240 / 240 0 / 0 Output: Urine 0 / 0 Catheter 1100 / 1100 400 / 400 Other: Percent of Meal Consumed 5% # Voids 1 Weight 36.378 kg Patient Weight 04/10/18 23:59 Weight 36.378 kg - General Appearance General appearance: Present: well-developed, appears started age EENT: Present: mucous membranes moist Neck: Present: no JVD Respiratory: Present: clear Cardiology: Present: no edema, regular rate, regular rhythm Gastrointestinal: Present: normoactive bowel sounds, no tenderness Integumentary: Present: warm and dry Neurologic: Present: alert and oriented x3 - Lab 04/10/18 08:03 04/10/18 06:14 Most recent lab results Calcium 8.4 mg/dL (8.6-10.3) L 04/10/18 06:14 Phosphorus 4.7 mg/dL (2.7-4.5) H 04/08/18 06:38 Magnesium 2.1 mg/dL (1.6-2.6) 04/08/18 06:38 - VTE Deep Vein Thrombosis/Pulmonary Embolism Present on Admission: No Consult Discharge Plan - Plan Referrals: Yunier Gallego DO [Primary Care Provider] -
--- NOTE | 2018-04-10 15:31 | Internal Med Progress Note ---
Date of Encounter: 04/10/18 Time of Encounter: 15:29 - Assessment and plan (1) Hyponatremia Current Visit: Yes Status: Acute Assessment and plan: Back to baseline (2) Acute kidney injury (nontraumatic) Current Visit: Yes Status: Acute Assessment and plan: JORDYN on top of CKD III Resolved Nephrology has signed off (3) Nausea and vomiting Current Visit: Yes Status: Resolved Assessment and plan: resolved Zofran prn Qualifiers: Vomiting type: unspecified Vomiting Intractability: non-intractable Qualified Code(s): R11.2 - Nausea with vomiting, unspecified (4) Dehydration Current Visit: Yes Status: Resolved Assessment and plan: resolved on IVF (5) Crohn disease Current Visit: Yes Status: Chronic Assessment and plan: on Imuran and Remicade, continue same Qualifiers: Gastrointestinal tract location: unspecified location Digestive disease complication type: without complication Qualified Code(s): K50.90 - Crohn's disease, unspecified, without complications (6) Community acquired pneumonia Current Visit: Yes Status: Acute Assessment and plan: Continue Unasyn 01/14 Qualifiers: Laterality: left Lung location: lower lobe of lung Qualified Code(s): J18.1 - Lobar pneumonia, unspecified organism (7) Hypermagnesemia Current Visit: Yes Status: Resolved Assessment and plan: resolved (8) Elevated troponin Current Visit: Yes Status: Acute Assessment and plan: cardio eval noted, appreciated (9) Hypokalemia Current Visit: Yes Status: Acute Assessment and plan: replaced, continue to monitor (10) PAF (paroxysmal atrial fibrillation) Current Visit: Yes Status: Chronic Assessment and plan: Controlled Not on anticoagulation, due to bleeding via ostomy Continue current meds - Time Spent With Patient Total time spent is greater than 50% in coordination of care (as documented) at patient's floor/unit and/or counseling patient: - Subjective Interval history: 72 F with Paroxysmal Afib, Crohn's disease, chronic hyponatremia, CKD IIIm s/p ileostomy in 2009 Admitted and being managed for JORDYN on CKD, CAP, Hypermagnessemia, Elevated troponin No new complains Renal function is improving - Constitutional Vitals: Temp Pulse Resp BP Pulse Ox 98.1 F 99 16 99/58 98 04/10/18 12:09 04/10/18 12:09 04/10/18 12:09 04/10/18 12:09 04/10/18 12:09 General appearance: Present: A&O X 3, pleasant, no acute distress, underweight - Head Head exam: Present: atraumatic, normocephalic - Eye Eye exam: Present: PERRL, conjuntiva pink, sclera anicteric Pupils: Present: PERRL - Neck Neck exam general surgery: Present: supple, trachea midline. Absent: lymphadenopathy - Respiratory Respiratory exam: Present: CTAB. Absent: accessory muscle use, rales, rhonchi, wheezes - Cardiovascular Cardiovascular exam: Present: RRR, +S1, +S2. Absent: diastolic murmur, gallop, rubs, systolic murmur - GI/Abdominal Additional comments: R ileostomy - Extremities Exam Extremities exam: Present: warm, radial pulses palpable and symmetrical. Absent : calf tenderness, cyanotic, pedal edema - Neurological Exam Neurological exam: Present: alert, CN II-XII intact, oriented X3, no focal deficits. Absent: pronater drift, facial droop, speech deficit - Skin Skin exam: Present: dry, intact Internal Medicine: Result - Labs CBC & Chem 7: 04/10/18 08:03 04/10/18 06:14 Labs: Short CBC 04/10/18 Range/Units 08:03 WBC 4.8 (4.3-11.1) K/mcL Hgb 8.9 L (11.5-15.4) g/dL Hct 23.9 L (35.3-44.9) % Plt Count 387 (140-400) K/mcL Neutrophils # 2.8 (1.6-8.9) K/mcL BMP 04/10/18 06:14 Sodium 136 Potassium 3.3 L Chloride 103 Carbon Dioxide 25 BUN 45 H Creatinine 0.85 Glucose 108 H Calcium 8.4 L - Impressions Impressions Echocardiogram 04/09/18 09:49 Impressions: LVEF 65-70%. Normal LV chamber size, wall thickness and function. Mild left ventricular diastolic dysfunction. Mildly dilated right ventricle with normal function. Mild tricuspid regurgitation. No pulmonary hypertension. Left Ventricular Wall Motion: Rest Echo Findings All wall segments showed normal motion. Findings: Study Quality * Technically adequate exam. ECG Findings * Normal sinus rhythm. Left Ventricle * LVEF 65-70%. * Normal LV chamber size, wall thickness and function. * Mild left ventricular diastolic dysfunction. Right Ventricle * Mildly dilated right ventricle with normal function. Left Atrium * Normal left atrial size. Right Atrium * Mildly dilated right atrium. Aortic Valve * Aortic valve not well visualized. * No aortic regurgitation. * No aortic stenosis. Mitral Valve * Normal mitral valve structure and function. * No mitral regurgitation. * No mitral stenosis. Tricuspid Valve * Normal tricuspid valve structure. * Mild tricuspid regurgitation. * No pulmonary hypertension. Pulmonic Valve * Pulmonic valve not well visualized. * No pulmonic regurgitation. Aorta * Normally sized aortic root. Pericardium * The pericardium appears normal. IVC * Normal IVC dimensions and inspiratory collapse. Pulmonary Artery * Normal visualized portions of the main pulmonary artery. - VTE Deep Vein Thrombosis/Pulmonary Embolism Present on Admission: No Consult Discharge Plan - Plan Referrals: Yunier Gallego DO [Primary Care Provider] -
[2018-04-10] MEDS: Nicotine 14 MG PATCH.TD24 TD SCH (20:30)
[2018-04-11] MEDS: Pantoprazole 40 MG VIAL IVP SCH ×2 (05:37→16:56)
[2018-04-11 06:42] LABS: Eosinophils # 0.1 K/mcL (0.0-0.6); Mean Corpuscular HGB Conc 36.9 g/dL (31.6-35.5); Mean Corpuscular Hemoglobin 38.1 pg (28.0-33.3); Mean Corpuscular Volume 103.2 fL (83.0-100.0); Mean Platelet Volume 8.9 fL (9.4-12.4); Platelet Count 271 K/mcL (140-400); Red Blood Count 1.55 M/mcL (3.82-4.97); Red Cell Distribution Width 14.9 % (11.5-14.5)
[2018-04-11 06:44] LABS: Hemoglobin 5.9 g/dL (11.5-15.4)
[2018-04-11 07:49] LABS: Lymphocytes # 1.2 K/mcL (0.6-4.6); Monocytes # 0.3 K/mcL (0.0-1.3); Neutrophils # 3.5 K/mcL (1.6-8.9)
[2018-04-11 07:50] LABS: Platelet Estimate Normal (Normal)
[2018-04-11] MEDS: Metoprolol XL (24 HR) Succ 25 MG TAB.ER.24H PO SCH (09:08)
--- NOTE | 2018-04-11 10:51 | Internal Medicine Consult Note ---
Date of Encounter: 04/11/18 Time of Encounter: 10:49 - Assessment and Plan (1) Anemia due to GI blood loss Current Visit: Yes Status: Acute Assessment and plan: She has had what appears to be a significant upper GI bleed. Differential to include ulceration, AVMs, esophagitis or gastritis. She has had a prolonged hospital course with antibiotics, it is quite possible she does have coincidental quite a lot but he is well. Her hemoglobin is trended down less than 6. She does require transfusion, I recommended lower endoscopy tomorrow morning, risks and benefits being discussed. She has signed consent. She admits prior bleeding episodes with any sort of aspirin or antiplatelet agent. Reports no recent nonsteroidal use, or reflux, or weight loss. (2) Hematemesis Current Visit: Yes Status: Acute Qualifiers: Nausea presence: with nausea Qualified Code(s): K92.0 - Hematemesis (3) Community acquired pneumonia Current Visit: Yes Status: Acute Qualifiers: Laterality: left Lung location: lower lobe of lung Qualified Code(s): J18.1 - Lobar pneumonia, unspecified organism (4) Crohn disease Current Visit: Yes Status: Chronic Qualifiers: Gastrointestinal tract location: unspecified location Digestive disease complication type: without complication Qualified Code(s): K50.90 - Crohn's disease, unspecified, without complications Internal Medicine - CN: HPI - Data of Consult Consult date: 04/11/18 Requesting Physician: Katia Gaona MD - Consult Narrative Reason for consult: GI bleeding and significant drop in hemoglobin History of present illness: Ms. Grey is a 72 year old female Past Med Surg Social Fam HX - Past Medical History Medical history: dementia, osteoporosis, other Additional medical history: crohn's disease, has ileostomy Psychiatric history: no psych history - Past Surgical History Surgical History: other Additional surgical history: part of small and large bowel removed. - Social History Smoking Status: Current every day smoker Packs per day: Half pack per day Smokeless Tobacco Status: No Alcohol use: occasionally Drug use: none - Constitutional Constitutional: no anorexia, no fatigue, no fever(s) - Cardiovascular Cardiovascular ROS IM: syncope, no chest pain, no diaphoresis, no dyspnea Additional comments: She does report some postural lightheadedness - Respiratory Respiratory: no dyspnea, no wheezing - Gastrointestinal Gastrointestinal: hematemesis, hematochezia, loose stools, nausea, vomiting, no heartburn - Neurological Neurological ROS: no focal weakness, no tremor(s) Internal Medicine - CN: Meds Amoxicillin/Clavulanate [Augmentin] 875 mg PO BIDWM 5 Days #10 tablet 04/02/18 [ Rx] Benzonatate [Tessalon] 200 mg PO TID PRN #45 capsule 04/02/18 [Rx] Cetirizine HCl [Zyrtec] 10 mg PO DAILY #90 tablet 04/02/18 [Rx] Fluticasone Propionate Nasal [Flonase] 16 gm NS DAILY PRN #1 bottle 04/02/18 [Rx ] 3 Allergy/AdvReac Type Severity Reaction Status Date / Time No Known Allergies Allergy Verified 04/02/18 14:16 Internal Medicine - CN: Exam - Constitutional Vitals: Temp Pulse Resp BP Pulse Ox 97.5 F L 92 16 110/66 95 04/11/18 10:00 04/11/18 10:00 04/11/18 10:00 04/11/18 10:00 04/11/18 06:59 General appearance IM: Present: A&O X 3, pleasant, no acute distress, underweight, answers questions appropriately Exam: Moderately frail appearance, nontoxic looking. Note made of slight drop in blood pressure, no tachycardia. - Head Head exam: Present: atraumatic - Eye Eye exam: Present: sclera anicteric. Absent: conjuntiva pink - Neck Neck exam general surgery: Present: supple, trachea midline - Respiratory Respiratory exam: Present: CTAB. Absent: rhonchi, wheezes, tachypnea - Cardiovascular Cardiovascular exam IM: Present: RRR, +S1, +S2. Absent: systolic murmur, tachycardia - GI/Abdominal GI/Abdominal exam IM: Present: normal bowel sounds, soft Additional comments: Ostomy with small amounts of maroon stool noted. Internal Medicine - CN: Reslt - Labs CBC & Chem 7: 04/11/18 06:27 04/11/18 05:12 Labs: Short CBC 04/11/18 Range/Units 06:27 WBC 5.1 (4.3-11.1) K/mcL Hgb 5.9 L* D (11.5-15.4) g/dL Hct 16.0 L (35.3-44.9) % Plt Count 271 (140-400) K/mcL Neutrophils # 3.5 (1.6-8.9) K/mcL BMP 04/11/18 05:12 Potassium 3.8 Consult Discharge Plan - Plan Referrals: Yunier Gallego DO [Primary Care Provider] -
--- NOTE | 2018-04-11 11:03 | Internal Med Progress Note ---
Date of Encounter: 04/11/18 Time of Encounter: 10:00 - Assessment and plan (1) Crohn disease Current Visit: Yes Status: Chronic Assessment and plan: on Imuran and Remicade, continue same Qualifiers: Gastrointestinal tract location: unspecified location Digestive disease complication type: without complication Qualified Code(s): K50.90 - Crohn's disease, unspecified, without complications (2) Community acquired pneumonia Current Visit: Yes Status: Acute Assessment and plan: Continue Unasyn 02/14 Qualifiers: Laterality: left Lung location: lower lobe of lung Qualified Code(s): J18.1 - Lobar pneumonia, unspecified organism (3) Anemia due to GI blood loss Current Visit: Yes Status: Acute Assessment and plan: Acute on chronic Hb on presentation 12 (dehydrated ) Baseline is 9-10 Hb this a.m 5.9 2 units RBCs ordered FOBT positive GI (Dr. Villeda following) Repeat HB after transfusion and q6h Clear liquid diets only For endoscopy after GI review (4) GI bleed Current Visit: Yes Status: Acute Assessment and plan: GI following Qualifiers: GI bleed type/associated pathology: unspecified gastrointestinal hemorrhage type Qualified Code(s): K92.2 - Gastrointestinal hemorrhage, unspecified (5) JORDYN (acute kidney injury) Current Visit: Yes Status: Acute (6) Hyponatremia Current Visit: Yes Status: Acute Assessment and plan: Back to baseline (7) PAF (paroxysmal atrial fibrillation) Current Visit: Yes Status: Chronic Assessment and plan: Controlled Not on anticoagulation, due to bleeding via ostomy Continue current meds (8) Hypermagnesemia Current Visit: Yes Status: Resolved Assessment and plan: resolved (9) Nausea and vomiting Current Visit: Yes Status: Resolved Assessment and plan: resolved Zofran prn Qualifiers: Vomiting type: unspecified Vomiting Intractability: non-intractable Qualified Code(s): R11.2 - Nausea with vomiting, unspecified - Time Spent With Patient Total time spent is greater than 50% in coordination of care (as documented) at patient's floor/unit and/or counseling patient: - Subjective Interval history: 72 F with Paroxysmal Afib, Crohn's disease, chronic hyponatremia, CKD IIIm s/p ileostomy in 2009 Admitted and being managed for JORDYN on CKD, CAP, Hypermagnessemia, Elevated troponin Renal function is improving She has been having shayan colored effluent from her ostomy Hb this a.m is 5.9 Patient does complains of weakness, BP and Pulse stable I have ordered 2 units RBCs and discussed with Dr. Villeda for endoscopy, kept NPO - Constitutional Vitals: Temp Pulse Resp BP Pulse Ox 97.5 F L 92 16 110/66 95 04/11/18 10:00 04/11/18 10:00 04/11/18 10:00 04/11/18 10:00 04/11/18 06:59 General appearance: Present: A&O X 3, pleasant, no acute distress, underweight, answers questions appropriately - Head Head exam: Present: atraumatic, normocephalic - Eye Eye exam: Present: PERRL, conjuntiva pink, sclera anicteric Pupils: Present: PERRL - Neck Neck exam general surgery: Present: supple, trachea midline. Absent: lymphadenopathy - Respiratory Respiratory exam: Present: CTAB. Absent: accessory muscle use, rales, rhonchi, wheezes - Cardiovascular Cardiovascular exam: Present: RRR, +S1, +S2. Absent: diastolic murmur, gallop, rubs, systolic murmur - GI/Abdominal Additional comments: stoma with dark bloody effluent - Extremities Exam Extremities exam: Present: warm, radial pulses palpable and symmetrical. Absent : calf tenderness, cyanotic, pedal edema - Neurological Exam Neurological exam: Present: alert, CN II-XII intact, oriented X3, no focal deficits. Absent: pronater drift, facial droop, speech deficit - Skin Skin exam: Present: dry, intact Internal Medicine: Result - Labs CBC & Chem 7: 04/11/18 06:27 04/11/18 05:12 Labs: Short CBC 04/11/18 Range/Units 06:27 WBC 5.1 (4.3-11.1) K/mcL Hgb 5.9 L* D (11.5-15.4) g/dL Hct 16.0 L (35.3-44.9) % Plt Count 271 (140-400) K/mcL Neutrophils # 3.5 (1.6-8.9) K/mcL BMP 04/11/18 05:12 Potassium 3.8 - VTE Documentation of Mechanical Device: Intermittent pneumatic compression device Deep Vein Thrombosis/Pulmonary Embolism Present on Admission: No Consult Discharge Plan - Plan Referrals: Yunier Gallego DO [Primary Care Provider] -
[2018-04-11] MEDS: Benzonatate 100 MG CAPSULE PO PRN ×2 (12:16→17:01)
[2018-04-11] MEDS: Ampicillin/Sulbactam 3,000 MG in 0.9 % Sodium Chloride Mini Bag 100 ML IVPB SCH ×2 (14:57→23:30)
[2018-04-11 16:26] LABS: INR 1.1; Prothrombin Time 11.3 Seconds (9.4-12.1)
[2018-04-11] MEDS: Nicotine 14 MG PATCH.TD24 TD SCH (20:54)
[2018-04-12] MEDS: Pantoprazole 40 MG VIAL IVP SCH (06:08)
[2018-04-12] MEDS ORDERED: *HR* Midazolam HCl 5 MG/5 ML VIAL IVP ONE (07:37)
[2018-04-12] MEDS ORDERED: *HR* FentaNYL (PF) 100 MCG/2 ML VIAL ONE (07:38)
--- NOTE | 2018-04-12 08:01 | Internal Med Progress Note ---
Date of Encounter: 04/12/18 Time of Encounter: 08:00 - Assessment and plan (1) Anemia due to GI blood loss Current Visit: Yes Status: Acute Assessment and plan: Multiple etiologies exist. Again she has refused further evaluation and endoscopy. (2) Hematemesis Current Visit: Yes Status: Resolved Qualifiers: Nausea presence: with nausea Qualified Code(s): K92.0 - Hematemesis (3) Community acquired pneumonia Current Visit: Yes Status: Acute Qualifiers: Laterality: left Lung location: lower lobe of lung Qualified Code(s): J18.1 - Lobar pneumonia, unspecified organism (4) Crohn disease Current Visit: Yes Status: Chronic Qualifiers: Gastrointestinal tract location: unspecified location Digestive disease complication type: without complication Qualified Code(s): K50.90 - Crohn's disease, unspecified, without complications - Subjective Interval history: She has decided this morning that she does not want to pursue upper endoscopy. She is aware that there could be a malignancy or something else there causing the bleeding, it may lead to further comorbidity or her . She is still refusing. She admits to still with some maroon-like stool in her ostomy, but certainly much less, she still feels somewhat weak. She did receive 2 units of blood yesterday, and her hemoglobin is about 9-1/2. - Constitutional Vitals: Temp Pulse Resp BP Pulse Ox 98.0 F 67 18 125/64 95 04/12/18 05:09 04/12/18 05:09 04/12/18 05:09 04/12/18 05:09 04/12/18 05:09 General appearance: Present: A&O X 3, pleasant, no acute distress, underweight, answers questions appropriately Internal Medicine: Result - Labs CBC & Chem 7: 04/11/18 15:48 04/11/18 05:12 Labs: Short CBC 04/11/18 Range/Units 15:48 Hgb 9.7 L D (11.5-15.4) g/dL - ABG Interpretation ABG results: PT/INR, D-dimer PT 11.3 Seconds (9.4-12.1) 04/11/18 15:48 - VTE Documentation of Mechanical Device: Intermittent pneumatic compression device Deep Vein Thrombosis/Pulmonary Embolism Present on Admission: No Consult Discharge Plan - Plan Referrals: Yunier Gallego, [Primary Care Provider] -
[2018-04-12 08:18] VITALS: BP 116/62
[2018-04-12 09:21] LABS: Basophils % 0.7 %; Hematocrit 23.9 % (35.3-44.9); Mean Platelet Volume 9.3 fL (9.4-12.4); Red Blood Count 2.51 M/mcL (3.82-4.97); Red Cell Distribution Width 17.5 % (11.5-14.5)
[2018-04-12] MEDS: Metoprolol XL (24 HR) Succ 25 MG TAB.ER.24H PO SCH (09:35)
[2018-04-12 10:07] LABS: Eosinophils # 0.2 K/mcL (0.0-0.6); Eosinophils % 3.5 %; Hemoglobin 8.8 g/dL (11.5-15.4); Immature Granulocytes % 1.1 % (0-4); Immature Platelets 3.1 % (1.1-6.1); Lymphocytes # 0.8 K/mcL (0.6-4.6); Lymphocytes % 14.6 %; Mean Corpuscular HGB Conc 36.8 g/dL (31.6-35.5); Mean Corpuscular Hemoglobin 35.1 pg (28.0-33.3); Mean Corpuscular Volume 95.2 fL (83.0-100.0); Monocytes # 0.7 K/mcL (0.0-1.3); Neutrophils # 3.7 K/mcL (1.6-8.9); Nucleated Red Blood Cells 0.4 /100 WBC (0); Platelet Count 248 K/mcL (140-400); Segmented Neutrophils % 67.1 %
--- NOTE | 2018-04-12 10:39 | Electrocardiograph Report ---
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
--- NOTE | 2018-04-12 10:41 | Electrocardiograph Report ---
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
--- NOTE | 2018-04-12 11:31 | Discharge Summary ---
- NOTES TO OUTPATIENT PROVIDER Notes to Outpatient Provider: Patient was admitted and managed for JORDYN and CAP, incidental finding of elevated troponin and paroxysmal afib, no anticagulation due to prior GIB. She also had acute on chronic anemia due to GIB, refused endoscopy, she received 2 units RBCS. Hb at discharge was 8. Follow up on HB. Date of Encounter: 04/12/18 Time of Encounter: 11:30 - Discharge Diagnosis (1) Crohn disease Priority: Secondary Status: Chronic Assessment and Plan: on Imuran and Remicade, continue same Qualifiers: Gastrointestinal tract location: unspecified location Digestive disease complication type: without complication Qualified Code(s): K50.90 - Crohn's disease, unspecified, without complications (2) Community acquired pneumonia Priority: Primary Status: Acute Assessment and Plan: Receivd 4 days of Unasyb Discharged with 3 more days of Augmentin Qualifiers: Laterality: left Lung location: lower lobe of lung Qualified Code(s): J18.1 - Lobar pneumonia, unspecified organism (3) Anemia due to GI blood loss Priority: Primary Status: Acute Assessment and Plan: Acute on chronic Hb on presentation 12 (dehydrated ) Baseline is 9-10 Hb dropped to 5.9 with shayan colored output in ostomy 2 units RBCs ordered FOBT positive GI consulted for endoscopy, and the patient refused endoscopy Repeat HB after transfusion was 8 Follow up with own head scorer (4) GI bleed Priority: Primary Status: Acute Assessment and Plan: GI following Qualifiers: GI bleed type/associated pathology: unspecified gastrointestinal hemorrhage type Qualified Code(s): K92.2 - Gastrointestinal hemorrhage, unspecified (5) JORDYN (acute kidney injury) Priority: Primary Status: Resolved Assessment and Plan: resolved Creatinine 3.12 on admission Resolved, Cr 0.85 at time of discharge (6) Hyponatremia Priority: Primary Status: Resolved Assessment and Plan: Back to baseline (7) PAF (paroxysmal atrial fibrillation) Priority: Primary Status: Chronic Assessment and Plan: ECG 04/08/18 191 with atrial fibrillation. Denies previous history of a.fib. [id number] score 2 (age, gender). Ideally would be on fpc anticoagulation , however reports had significant GI bleed while on ASA 81mg with her crohns Discharged with low dose BB for rate control Continue statin per cardiology (8) Hypermagnesemia Priority: Primary Status: Resolved Assessment and Plan: resolved (9) Nausea and vomiting Priority: Primary Status: Resolved Assessment and Plan: resolved Zofran prn Qualifiers: Vomiting type: unspecified Vomiting Intractability: non-intractable Qualified Code(s): R11.2 - Nausea with vomiting, unspecified Hospital course: Ms. Grey is a 72 year old female with hx of Crohn's disease She was admitted and managed for CAP, JORDYN, GIB, Acute on chronic anemia, Newly diagnosed paroxymal Afib, elevated troponin She is seen and examined at the bedside this mrn She denies further bloody ostomy output, she is s/p 2 units BCS on 04/11 for GIB, she has refused endoscopy, she was seen by GI X2 She is hemodynamically stable, AAOX3 and ambulatory, her other acute problems have resolved To complete 3 more day of antibiotics at home Follow up with PCP More details as in each diagnoses Tobacco cessation counselling done for 3 mins Discharge discussed with: patient, family, nurse Time spent discussing smoking cessation with patient: 3 to 10 minutes - Time Spent with Patient Total time spent providing and/or coordinating discharge services: Greater than 30 minutes - Discharge Medications Prescriptions: Amoxicillin/Clavulanate [Augmentin] 875 mg PO BIDWM 3 Days #6 tablet Atorvastatin [Lipitor] 40 mg PO HS #30 tablet Metoprolol XL (24 HR) Succ [Toprol Xl] 12.5 mg PO DAILY #30 tab.er.24h Omeprazole [PriLOSEC] 40 mg PO DAILY #30 cap Home Medications: Benzonatate [Tessalon] 200 mg PO TID PRN #45 capsule 04/02/18 [Rx] Cetirizine HCl [Zyrtec] 10 mg PO DAILY #90 tablet 04/02/18 [Rx] Fluticasone Propionate Nasal [Flonase] 16 gm NS DAILY PRN #1 bottle 04/02/18 [Rx ] Amoxicillin/Clavulanate [Augmentin] 875 mg PO BIDWM 3 Days #6 tablet 04/12/18 [ Rx] Atorvastatin [Lipitor] 40 mg PO HS #30 tablet 04/12/18 [Rx] Metoprolol XL (24 HR) Succ [Toprol Xl] 12.5 mg PO DAILY #30 tab.er.24h 04/12/18 [Rx] Omeprazole [PriLOSEC] 40 mg PO DAILY #30 cap 04/12/18 [Rx] Allergies/Adverse Reactions: 3 Allergy/AdvReac Type Severity Reaction Status Date / Time No Known Allergies Allergy Verified 04/02/18 14:16 Date of admission: 04/07/18 17:05 Primary care physician: Yunier Gallego DO Consults: 04/07/18 18:40 Consult to Nutrition [CONS] Routine Comment: Consulting Provider: NUTRITION Reason for Dietary Consult: MST Score 04/09/18 09:49 Consult to Cardiology [CONS] Routine Comment: Consulting Provider: Cardiology Kimberly Reason for Consult: abnormal ekg Call Completed: No 04/11/18 08:29 Consult to Physician [CONS] Stat Consulting Provider: Vladimir Villeda Reason for Consult: GIB Call Completed: Yes Discharging clinician: Bharat Stokes Anticipated date of discharge: 04/12/18 - Constitutional Vitals: Temp Pulse Resp BP Pulse Ox 98.2 F 65 16 116/62 98 04/12/18 08:16 04/12/18 08:16 04/12/18 08:16 04/12/18 08:16 04/12/18 08:16 General appearance: Present: cachectic, A&O X 3, pleasant, no acute distress, underweight, answers questions appropriately - Head Head exam: Present: atraumatic, normocephalic - Eye Eye exam: Present: PERRL, conjuntiva pink, sclera anicteric Pupils: Present: PERRL - Neck Neck exam general surgery: Present: supple, trachea midline. Absent: lymphadenopathy - Respiratory Respiratory exam: Present: CTAB. Absent: accessory muscle use, rales, rhonchi, wheezes - Cardiovascular Cardiovascular exam: Present: RRR, +S1, +S2. Absent: diastolic murmur, gallop, rubs, systolic murmur - GI/Abdominal GI/Abdominal exam: Present: normal bowel sounds, soft, no peritoneal signs. Absent: distended, tenderness Additional comments: stoma with brown output - Extremities Exam Extremities exam: Present: warm, radial pulses palpable and symmetrical. Absent : calf tenderness, cyanotic, pedal edema - Neurological Exam Neurological exam: Present: alert, CN II-XII intact, oriented X3, no focal deficits. Absent: pronater drift, facial droop, speech deficit - Skin Skin exam: Present: dry, intact - Patient Status Disposition: Home, Self-Care Condition: Good Functional capacity at discharge: independent ambulation Overall status at discharge: patient is progressing back to baseline - Discharge Instructions Follow Up With: Yunier Gallego DO [Primary Care Provider] - - Diet and Activity Activity: resume usual activities as tolerated Diet: low fat, low cholesterol, low salt diet - VTE Documentation of Mechanical Device: Intermittent pneumatic compression device Deep Vein Thrombosis/Pulmonary Embolism Present on Admission: No
== END 2018-04-12 11:59 | disposition home or self-care (01) | DRG 682 ==
LOC: EMEROO 13:04 → SUATTDRO 17:05 → 2ANU 17:05
PROVIDERS: ADMIT Internal Medicine; ATTEND Internal Medicine

== ENCOUNTER 2020-05-27 19:14 | Inpatient (IN) ==
[2020-05-27] MEDS ORDERED: Naloxone 0.4 MG/ML INJ IVP PRN (22:03)
[2020-05-27] MEDS ORDERED: Acetaminophen 325 MG TABLET PO PRN (22:03)
[2020-05-27] MEDS ORDERED: *HR* Promethazine 25 MG/ML VIAL IVP PRN (22:03)
[2020-05-27] MEDS ORDERED: 0.9 % Sodium Chloride 1,000 ML IVC SCH (22:30)
[2020-05-27 23:19] LABS: Calcium 8.5 mg/dL (8.6-10.3); Potassium 4.2 mEq/L (3.5-5.1)
[2020-05-28] MEDS ORDERED: Magnesium Oxide 400 MG TABLET PO ONE (00:06)
[2020-05-28 00:58] LABS: Basophils # 0.1 K/mcL (0.0-0.2); Basophils % 0.4 %; Eosinophils % 0.4 %; Hematocrit 34.7 % (35.3-44.9); Hemoglobin 12.1 g/dL (11.5-15.4); Immature Granulocytes % 1.2 % (0-4); Lymphocytes % 8.8 %; Mean Corpuscular HGB Conc 34.9 g/dL (31.6-35.5); Mean Platelet Volume 9.1 fL (9.4-12.4); Monocytes # 1.4 K/mcL (0.0-1.3); Monocytes % 12.9 %; Neutrophils # 8.5 K/mcL (1.6-8.9); Platelet Count 430 K/mcL (140-400); Red Cell Distribution Width 11.6 % (11.5-14.5); Segmented Neutrophils % 76.3 %; White Blood Count 11.1 K/mcL (4.3-11.1)
[2020-05-28 01:09] LABS: Prothrombin Time 11.1 Seconds (9.4-12.1)
[2020-05-28 01:14] LABS: Magnesium 1.6 mg/dL (1.6-2.6); Phosphorous 3.3 mg/dL (2.7-4.5)
[2020-05-28 01:20] LABS: Potassium 3.8 mEq/L (3.5-5.1)
[2020-05-28 01:31] LABS: Thyroid Stimulating Hormone 1.391 mcIU/mL (0.340-5.600)
[2020-05-28 01:49] LABS: Bilirubin,Urine Negative (Negative); Blood,Urine Negative (Negative); Clarity,Urine Clear (Clear); Color,Urine Colorless (Yellow); Glucose,Urine (UA) Normal (Normal); Ketones,Urine Trace mg/dL (Negative); Leukocyte Esterase,Urine Negative (Negative); Nitrite,Urine Negative (Negative); Protein,Urine Negative (Neg-Trace); Specific Gravity,Urine 1.008 (1.010-1.025); Urobilinogen,Urine Normal (Normal)
[2020-05-28 01:52] LABS: Potassium,Urine 14.3 mEq/L; Sodium, Urine 21.2 mEq/L
[2020-05-28 05:28] LABS: Calcium 8.9 mg/dL (8.6-10.3); Potassium 3.3 mEq/L (3.5-5.1)
[2020-05-28] MEDS ORDERED: D5% in 0.45% NACL 1,000 ML IVC SCH (05:45)
[2020-05-28] MEDS: Metoprolol XL (24 HR) Succ 25 MG TAB.ER.24H PO SCH (07:19)
[2020-05-28 09:29] LABS: Calcium 8.8 mg/dL (8.6-10.3)
[2020-05-28] MEDS: Potassium Chloride 40 MEQ in D5% in 0.9% NACL 1,000 ML IVC SCH ×2 (09:31→23:18)
[2020-05-28 12:41] LABS: Calcium 9.1 mg/dL (8.6-10.3); Potassium 4.3 mEq/L (3.5-5.1)
[2020-05-28 17:04] LABS: Calcium 9.2 mg/dL (8.6-10.3); Potassium 4.6 mEq/L (3.5-5.1)
[2020-05-28 21:50] LABS: Calcium 8.9 mg/dL (8.6-10.3); Potassium 4.7 mEq/L (3.5-5.1)
[2020-05-29 01:02] LABS: Basophils # 0.1 K/mcL (0.0-0.2); Basophils % 0.6 %; Eosinophils # 0.1 K/mcL (0.0-0.6); Eosinophils % 0.7 %; Hematocrit 32.5 % (35.3-44.9); Hemoglobin 11.3 g/dL (11.5-15.4); Immature Granulocytes % 0.6 % (0-4); Lymphocytes # 0.9 K/mcL (0.6-4.6); Lymphocytes % 9.1 %; Mean Corpuscular HGB Conc 34.8 g/dL (31.6-35.5); Mean Corpuscular Hemoglobin 31.7 pg (28.0-33.3); Mean Platelet Volume 9.3 fL (9.4-12.4); Monocytes # 0.9 K/mcL (0.0-1.3); Monocytes % 9.1 %; Neutrophils # 7.9 K/mcL (1.6-8.9); Platelet Count 388 K/mcL (140-400); Red Blood Count 3.57 M/mcL (3.82-4.97); Red Cell Distribution Width 11.9 % (11.5-14.5); Segmented Neutrophils % 79.9 %; White Blood Count 9.9 K/mcL (4.3-11.1)
[2020-05-29 01:14] LABS: Calcium 8.9 mg/dL (8.6-10.3); Potassium 4.3 mEq/L (3.5-5.1)
[2020-05-29 04:16] LABS: BUN/Creatinine Ratio 24 (6-26); Blood Urea Nitrogen 19 mg/dL (8-23); Calcium 6.6 mg/dL (8.6-10.3); Carbon Dioxide 13 mEq/L (23-29); Chloride 113 mEq/L (98-107); Glucose 76 mg/dL (70-105); Magnesium 1.2 mg/dL (1.6-2.6); Osmolality,Calculated 279 (280-300); Potassium 3.8 mEq/L (3.5-5.1); Sodium 134 mEq/L (136-145); eGFR For African Americans > 60 (> 60); eGFR For Non-African Americans > 60 (> 60)
[2020-05-29] MEDS: Calcium Gluconate 1gm/50mL 1 GM/50 ML BAG IVPB SCH ×2 (05:34→06:25)
[2020-05-29] MEDS ORDERED: D5% in Water 1,000 ML IVC SCH (07:45)
[2020-05-29] MEDS: Metoprolol XL (24 HR) Succ 25 MG TAB.ER.24H PO SCH (08:40)
[2020-05-29 13:23] LABS: BUN/Creatinine Ratio 17 (6-26); Blood Urea Nitrogen 18 mg/dL (8-23); Calcium 9.1 mg/dL (8.6-10.3); Carbon Dioxide 16 mEq/L (23-29); Chloride 102 mEq/L (98-107); Glucose 118 mg/dL (70-105); Osmolality,Calculated 267 (280-300); Potassium 4.5 mEq/L (3.5-5.1); Sodium 127 mEq/L (136-145); eGFR For African Americans > 60 (> 60); eGFR For Non-African Americans 50 (> 60)
[2020-05-29 17:29] LABS: Calcium 9.2 mg/dL (8.6-10.3); Potassium 5.3 mEq/L (3.5-5.1)
[2020-05-30 01:14] LABS: Basophils # 0.1 K/mcL (0.0-0.2); Basophils % 0.5 %; Eosinophils # 0.2 K/mcL (0.0-0.6); Eosinophils % 1.9 %; Hematocrit 28.7 % (35.3-44.9); Immature Granulocytes % 0.6 % (0-4); Lymphocytes # 0.9 K/mcL (0.6-4.6); Lymphocytes % 8.8 %; Mean Corpuscular HGB Conc 33.8 g/dL (31.6-35.5); Mean Corpuscular Hemoglobin 31.6 pg (28.0-33.3); Mean Corpuscular Volume 93.5 fL (83.0-100.0); Mean Platelet Volume 9.2 fL (9.4-12.4); Monocytes # 1.2 K/mcL (0.0-1.3); Monocytes % 11.6 %; Neutrophils # 7.8 K/mcL (1.6-8.9); Platelet Count 368 K/mcL (140-400); Red Blood Count 3.07 M/mcL (3.82-4.97); Red Cell Distribution Width 12.3 % (11.5-14.5); Segmented Neutrophils % 76.6 %; White Blood Count 10.2 K/mcL (4.3-11.1)
[2020-05-30 01:15] LABS: Hemoglobin 9.7 g/dL (11.5-15.4)
[2020-05-30 01:34] LABS: BUN/Creatinine Ratio 14 (6-26); Blood Urea Nitrogen 14 mg/dL (8-23); Calcium 8.7 mg/dL (8.6-10.3); Carbon Dioxide 17 mEq/L (23-29); Chloride 102 mEq/L (98-107); Glucose 97 mg/dL (70-105); Magnesium 1.5 mg/dL (1.6-2.6); Osmolality,Calculated 264 (280-300); Potassium 4.4 mEq/L (3.5-5.1); Sodium 127 mEq/L (136-145); eGFR For African Americans > 60 (> 60); eGFR For Non-African Americans 55 (> 60)
[2020-05-30 06:57] VITALS: BP 109/58
[2020-05-30] MEDS: Metoprolol XL (24 HR) Succ 25 MG TAB.ER.24H PO SCH (07:33)
== END 2020-05-30 08:05 | disposition left against medical advice (07) | DRG 641 ==
LOC: 2NNU → SUATTDRO 20:59
PROVIDERS: ADMIT Internal Medicine; ATTEND Internal Medicine

== ENCOUNTER 2020-06-08 16:23 | Inpatient (IN) ==
[2020-06-08 18:00] LABS: Basophils # 0.1 K/mcL (0.0-0.2); Basophils % 0.6 %; Eosinophils % 0.2 %; Hematocrit 38.3 % (35.3-44.9); Hemoglobin 12.8 g/dL (11.5-15.4); Immature Granulocytes % 0.5 % (0-4); Lymphocytes # 0.6 K/mcL (0.6-4.6); Lymphocytes % 4.9 %; Mean Corpuscular HGB Conc 33.4 g/dL (31.6-35.5); Mean Corpuscular Hemoglobin 30.9 pg (28.0-33.3); Mean Corpuscular Volume 92.5 fL (83.0-100.0); Mean Platelet Volume 9.2 fL (9.4-12.4); Monocytes # 0.8 K/mcL (0.0-1.3); Monocytes % 6.9 %; Neutrophils # 10.3 K/mcL (1.6-8.9); Platelet Count 483 K/mcL (140-400); Red Blood Count 4.14 M/mcL (3.82-4.97); Segmented Neutrophils % 86.9 %; White Blood Count 11.8 K/mcL (4.3-11.1)
[2020-06-08 18:32] LABS: Albumin/Globulin Ratio 1.3 (1.1-2.2); Bilirubin,Total 0.4 mg/dL (0.3-1.0); Calcium 10.4 mg/dL (8.6-10.3); Globulin 3.8 g/dL (2.4-3.5); Potassium 5.7 mEq/L (3.5-5.1); Total Protein 8.8 g/dL (6.4-8.9); Troponin I 0.08 ng/mL (< 0.04)
[2020-06-08] MEDS ORDERED: Insulin Human Regular 5 UNIT in 0.9 % Sodium Chloride 10 ML IV ONE (18:44)
[2020-06-08] MEDS ORDERED: Sodium Bicarbonate 50 MEQ/50 ML VIAL IVP ONE (18:44)
[2020-06-08] MEDS ORDERED: Calcium Gluconate 1gm/50mL 1 GM/50 ML BAG IVPB ONE (18:44)
[2020-06-08] MEDS ORDERED: *HR* Dextrose 50 % in Water (Vial) 50 ML VIAL IVP ONE (18:44)
[2020-06-08 18:49] LABS: Bilirubin,Urine Negative (Negative); Blood,Urine Trace (Negative); Clarity,Urine Turbid (Clear); Color,Urine Yellow (Yellow); Glucose,Urine (UA) Normal (Normal); Ketones,Urine Negative (Negative); Leukocyte Esterase,Urine Small (Negative); Nitrite,Urine Negative (Negative); PH,Urine 5.5 pH Units (5.0-8.0); Protein,Urine 30 mg/dL (Neg-Trace); Specific Gravity,Urine 1.016 (1.010-1.025); Urobilinogen,Urine Normal (Normal)
[2020-06-08] MEDS ORDERED: Naloxone 0.4 MG/ML INJ IVP PRN (21:28)
[2020-06-08 21:53] LABS: Bacteria,Urine Few per hpf (None-Few); Hyaline Casts,Urine Moderate per lpf (None Seen); Mucus,Urine Few per lpf (None-Few); RBC,Urine 0-3 per hpf (0-3); Renal Epithelial Cells,Urine Few per hpf (None-Few); Squamous Epithelial Cell,Urine Few per hpf (None-Few)
[2020-06-08 21:54] LABS: Potassium,Urine 66.2 mEq/L; Protein/Creatinine Ratio,Urine 0.4 mg/mg (0.00-0.20); Sodium, Urine 11.7 mEq/L
[2020-06-08] MEDS ORDERED: 0.9 % Sodium Chloride 1,000 ML IVC SCH (22:15)
[2020-06-08] MEDS ORDERED: Ondansetron ODT 4 MG TAB.RAPDIS SL PRN (22:23)
[2020-06-08 22:35] LABS: INR 0.9; Prothrombin Time 10.5 Seconds (9.4-12.1)
[2020-06-08 22:48] LABS: Magnesium 1.6 mg/dL (1.6-2.6); Phosphorous 6.8 mg/dL (2.7-4.5)
[2020-06-08 22:49] LABS: Calcium 11.2 mg/dL (8.6-10.3); Potassium 4.6 mEq/L (3.5-5.1)
[2020-06-09] MEDS ORDERED: Naloxone 0.4 MG/ML INJ IVP PRN (00:38)
[2020-06-09 00:52] LABS: VBG HCO3 17 mEq/L (21-27); VBG PCO2 32 mmHg (41-51); VBG PH 7.32 pH Units (7.32-7.42); VBG PO2 64 mmHg (25-50)
[2020-06-09 02:59] LABS: Calcium 10.2 mg/dL (8.6-10.3); Potassium 4.1 mEq/L (3.5-5.1)
[2020-06-09] MEDS: D5% in 0.45% NACL 1,000 ML IVC SCH ×2 (03:00→17:37)
[2020-06-09 07:02] LABS: Calcium 9.6 mg/dL (8.6-10.3); Potassium 4.1 mEq/L (3.5-5.1)
[2020-06-09] MEDS: Metoprolol XL (24 HR) Succ 25 MG TAB.ER.24H PO SCH (09:06)
[2020-06-09 09:43] LABS: Calcium 9.5 mg/dL (8.6-10.3); Potassium 4.3 mEq/L (3.5-5.1)
[2020-06-09 13:34] LABS: Calcium 9.4 mg/dL (8.6-10.3); Potassium 3.8 mEq/L (3.5-5.1)
[2020-06-10 07:22] LABS: Hematocrit 29.8 % (35.3-44.9); Hemoglobin 10.2 g/dL (11.5-15.4); Mean Corpuscular HGB Conc 34.2 g/dL (31.6-35.5); Mean Corpuscular Hemoglobin 31.4 pg (28.0-33.3); Mean Corpuscular Volume 91.7 fL (83.0-100.0); Mean Platelet Volume 9.4 fL (9.4-12.4); Platelet Count 394 K/mcL (140-400); Red Blood Count 3.25 M/mcL (3.82-4.97); White Blood Count 8.7 K/mcL (4.3-11.1)
[2020-06-10 08:12] LABS: Calcium 8.6 mg/dL (8.6-10.3); Magnesium 1.2 mg/dL (1.6-2.6); Phosphorous 4.7 mg/dL (2.7-4.5); Potassium 3.9 mEq/L (3.5-5.1)
[2020-06-10] MEDS ORDERED: Sodium Bicarbonate 75 MEQ in D5% in 0.45% NACL 1,000 ML IVC SCH (08:32)
[2020-06-10] MEDS ORDERED: D5% in 0.45% NACL 1,000 ML IVC ONE (10:26)
[2020-06-10] MEDS: Sodium Bicarbonate 75 MEQ in D5% in 0.45% NACL 1,000 ML IVC SCH (11:28)
[2020-06-10] MEDS: Metoprolol XL (24 HR) Succ 25 MG TAB.ER.24H PO SCH (11:29)
[2020-06-10] MEDS: D5% in 0.45% NACL 1,000 ML IVC SCH (11:34)
[2020-06-11] MEDS: Sodium Bicarbonate 75 MEQ in D5% in 0.45% NACL 1,000 ML IVC SCH ×2 (01:36→21:19)
[2020-06-11 07:32] LABS: Hematocrit 29.3 % (35.3-44.9); Hemoglobin 10.1 g/dL (11.5-15.4); Mean Corpuscular HGB Conc 34.5 g/dL (31.6-35.5); Mean Corpuscular Hemoglobin 31.4 pg (28.0-33.3); Mean Platelet Volume 9.7 fL (9.4-12.4); Platelet Count 382 K/mcL (140-400); Red Blood Count 3.22 M/mcL (3.82-4.97); White Blood Count 6.7 K/mcL (4.3-11.1)
[2020-06-11] MEDS: Metoprolol XL (24 HR) Succ 25 MG TAB.ER.24H PO SCH (09:29)
[2020-06-12] MEDS: Metoprolol XL (24 HR) Succ 25 MG TAB.ER.24H PO SCH (08:39)
[2020-06-12 10:17] LABS: Hematocrit 31.8 % (35.3-44.9); Hemoglobin 10.5 g/dL (11.5-15.4); Mean Corpuscular Hemoglobin 30.8 pg (28.0-33.3); Mean Corpuscular Volume 93.3 fL (83.0-100.0); Mean Platelet Volume 9.4 fL (9.4-12.4); Platelet Count 374 K/mcL (140-400); Red Blood Count 3.41 M/mcL (3.82-4.97); Red Cell Distribution Width 12.3 % (11.5-14.5); White Blood Count 7.8 K/mcL (4.3-11.1)
[2020-06-12 10:37] LABS: Calcium 8.2 mg/dL (8.6-10.3); Potassium 3.5 mEq/L (3.5-5.1)
[2020-06-12 11:08] VITALS: BP 98/52
[2020-06-15 14:08] LABS: Urine Collection Volume 1115 mL
[2020-06-15 14:10] LABS: Urine Creatinine mg/d 691 mg/d (500-1400)
== END 2020-06-12 14:48 | disposition home or self-care (01) | DRG 682 ==
LOC: 2ANU 16:23 → EMEROOARM 16:23 → SUATTDRO 19:56 → 2ANU 20:04
PROVIDERS: ADMIT Student in an Organized Health Care Education/Training Program; ATTEND Internal Medicine

== ENCOUNTER 2021-06-27 22:52 | Observation (INO) ==
[2021-06-27] MEDS ORDERED: 0.9 % Sodium Chloride 500 ML IVC ONE (23:59)
[2021-06-28] MEDS ORDERED: Ondansetron 4 MG/2 ML VIAL IVP ONE (00:08)
[2021-06-28 00:32] LABS: Basophils # 0.1 K/mcL (0.0-0.2); Basophils % 1.3 %; Eosinophils % 0.5 %; Hematocrit 29.5 % (35.3-44.9); Hemoglobin 10.7 g/dL (11.5-15.4); Immature Granulocytes % 0.4 % (0-4); Lymphocytes % 17.7 %; Mean Corpuscular HGB Conc 36.3 g/dL (31.6-35.5); Mean Corpuscular Hemoglobin 30.7 pg (28.0-33.3); Mean Corpuscular Volume 84.5 fL (83.0-100.0); Mean Platelet Volume 10.3 fL (9.4-12.4); Monocytes # 1.2 K/mcL (0.0-1.3); Monocytes % 20.6 %; Neutrophils # 3.3 K/mcL (1.6-8.9); Platelet Count 267 K/mcL (140-400); Red Blood Count 3.49 M/mcL (3.82-4.97); Red Cell Distribution Width 12.5 % (11.5-14.5); Segmented Neutrophils % 59.5 %; White Blood Count 5.6 K/mcL (4.3-11.1)
[2021-06-28 00:42] LABS: BUN/Creatinine Ratio 18 (6-26); Blood Urea Nitrogen 17 mg/dL (8-23); Carbon Dioxide 23 mEq/L (23-29); Chloride 85 mEq/L (98-107); Glucose 98 mg/dL (70-105); Osmolality,Calculated 254 (280-300); Potassium 3.3 mEq/L (3.5-5.1); Sodium 121 mEq/L (136-145); Troponin I < 0.03 ng/mL (< 0.04); eGFR For African Americans > 60 (> 60); eGFR For Non-African Americans 56 (> 60)
[2021-06-28 01:25] LABS: Bacteria,Urine Few per hpf (None-Few); Bilirubin,Urine Negative (Negative); Blood,Urine Negative (Negative); Clarity,Urine Clear (Clear); Color,Urine Light-Yellow (Yellow); Glucose,Urine (UA) Normal (Normal); Ketones,Urine Negative (Negative); Leukocyte Esterase,Urine Moderate (Negative); Mucus,Urine Few per lpf (None-Few); Nitrite,Urine Negative (Negative); PH,Urine 5.5 pH Units (5.0-8.0); Protein,Urine Negative (Neg-Trace); Renal Epithelial Cells,Urine Few per hpf (None-Few); Specific Gravity,Urine 1.008 (1.010-1.025); Squamous Epithelial Cell,Urine Few per hpf (None-Few); Transitional Epi Cells,Urine Few per hpf (None-Few); Urobilinogen,Urine Normal (Normal)
[2021-06-28 01:31] LABS: Adenovirus Not Detected (Not Detect); Coronavirus 229E Not Detected (Not Detect); Coronavirus HKU1 Not Detected (Not Detect); Coronavirus NL63 Not Detected (Not Detect); Coronavirus OC43 Not Detected (Not Detect)
[2021-06-28] MEDS ORDERED: cefTRIAXone 1,000 MG in 0.9 % Sodium Chloride Mini Bag 100 ML IVPB ONE (01:31)
[2021-06-28 01:32] LABS: Bordetella Pertussis Not Detected (Not Detect); Chlamydophila pneumoniae Not Detected (Not Detect); Human Metapneumovirus Not Detected (Not Detect); Human Rhinovirus/Enterovirus Not Detected (Not Detect); Influenza A Subtype 2009 H1 Not Detected (Not Detect); Influenza B Not Detected (Not Detect); Mycoplasma pneumoniae Not Detected (Not Detect); Parainfluenza Virus 1 Not Detected (Not Detect); Parainfluenza Virus 2 Not Detected (Not Detect); Parainfluenza Virus 3 Not Detected (Not Detect); Parainfluenza Virus 4 Not Detected (Not Detect); Respiratory Syncytial Virus Not Detected (Not Detect); SARS-CoV-2 Not Detected (Not Detect)
[2021-06-28] MEDS ORDERED: Isovue-370 500 ML BOTTLE IVP ONE (01:44)
[2021-06-28] MEDS ORDERED: Ondansetron 4 MG/2 ML VIAL IVP PRN (01:59)
[2021-06-28] MEDS ORDERED: Naloxone 0.4 MG/ML INJ IVP PRN (01:59)
[2021-06-28] MEDS ORDERED: Melatonin 3 MG TABLET PO PRN (01:59)
[2021-06-28 04:52] LABS: Basophils # 0.1 K/mcL (0.0-0.2); Basophils % 1.1 %; Eosinophils % 0.4 %; Hematocrit 32.5 % (35.3-44.9); Hemoglobin 11.5 g/dL (11.5-15.4); Immature Granulocytes % 0.4 % (0-4); Lymphocytes # 0.8 K/mcL (0.6-4.6); Lymphocytes % 14.7 %; Mean Corpuscular HGB Conc 35.4 g/dL (31.6-35.5); Mean Corpuscular Hemoglobin 30.6 pg (28.0-33.3); Mean Corpuscular Volume 86.4 fL (83.0-100.0); Mean Platelet Volume 10.1 fL (9.4-12.4); Monocytes # 0.8 K/mcL (0.0-1.3); Monocytes % 14.2 %; Neutrophils # 3.8 K/mcL (1.6-8.9); Platelet Count 266 K/mcL (140-400); Red Blood Count 3.76 M/mcL (3.82-4.97); Red Cell Distribution Width 12.4 % (11.5-14.5); Segmented Neutrophils % 69.2 %; White Blood Count 5.5 K/mcL (4.3-11.1)
[2021-06-28 05:01] LABS: INR 1.1; Prothrombin Time 12.4 Seconds (9.4-12.1)
[2021-06-28 05:16] LABS: BUN/Creatinine Ratio 17 (6-26); Blood Urea Nitrogen 15 mg/dL (8-23); Carbon Dioxide 22 mEq/L (23-29); Chloride 88 mEq/L (98-107); Chol/HDL Ratio 1.4 (0-4.9); Cholesterol 123 mg/dL (< 200); Glucose 99 mg/dL (70-105); HDL Cholesterol 89 mg/dL (40-59); LDL Cholesterol,Calculated 26 mg/dL (< 100); Magnesium 1.1 mg/dL (1.6-2.6); Osmolality,Calculated 259 (280-300); Phosphorous 3.1 mg/dL (2.7-4.5); Potassium 3.1 mEq/L (3.5-5.1); Sodium 124 mEq/L (136-145); Triglycerides 40 mg/dL (< 150); eGFR For African Americans > 60 (> 60); eGFR For Non-African Americans > 60 (> 60)
[2021-06-28 11:09] LABS: BUN/Creatinine Ratio 14 (6-26); Blood Urea Nitrogen 13 mg/dL (8-23); Calcium 9.9 mg/dL (8.6-10.3); Carbon Dioxide 26 mEq/L (23-29); Chloride 91 mEq/L (98-107); Glucose 137 mg/dL (70-105); Osmolality,Calculated 262 (280-300); Potassium 3.8 mEq/L (3.5-5.1); Sodium 125 mEq/L (136-145); eGFR For African Americans > 60 (> 60); eGFR For Non-African Americans 58 (> 60)
[2021-06-28 18:34] LABS: BUN/Creatinine Ratio 14 (6-26); Blood Urea Nitrogen 14 mg/dL (8-23); Calcium 9.7 mg/dL (8.6-10.3); Carbon Dioxide 25 mEq/L (23-29); Chloride 91 mEq/L (98-107); Glucose 117 mg/dL (70-105); Magnesium 2.4 mg/dL (1.6-2.6); Osmolality,Calculated 264 (280-300); Potassium 4.1 mEq/L (3.5-5.1); Sodium 126 mEq/L (136-145); eGFR For African Americans > 60 (> 60); eGFR For Non-African Americans 55 (> 60)
[2021-06-28] MEDS ORDERED: cefTRIAXone 1,000 MG in Water for inj. (sterile) 10 ML IVP SCH (21:00)
[2021-06-29 03:19] LABS: BUN/Creatinine Ratio 13 (6-26); Blood Urea Nitrogen 11 mg/dL (8-23); Calcium 8.9 mg/dL (8.6-10.3); Carbon Dioxide 24 mEq/L (23-29); Chloride 94 mEq/L (98-107); Glucose 82 mg/dL (70-105); Osmolality,Calculated 262 (280-300); Phosphorous 2.7 mg/dL (2.7-4.5); Potassium 3.8 mEq/L (3.5-5.1); Sodium 127 mEq/L (136-145); eGFR For African Americans > 60 (> 60); eGFR For Non-African Americans > 60 (> 60)
[2021-06-29] MEDS ORDERED: Metoprolol XL (24 HR) Succ 50 MG TAB.ER.24H PO SCH (09:00)
[2021-06-29 10:58] VITALS: BP 126/67; PULSE 77; TEMP 98; O2SAT 92
== END 2021-06-29 11:29 | disposition home or self-care (01) ==
LOC: 3BNU 22:52 → EMEROOARM 22:52 → SUATTDRO 06-28 01:57 → 3BNU 06-28 03:10
PROVIDERS: ADMIT Internal Medicine; ATTEND Internal Medicine

== ENCOUNTER 2022-05-08 17:47 | Observation (INO) ==
[2022-05-08] MEDS ORDERED: Ondansetron 4 MG/2 ML VIAL IVP ONE (20:12)
[2022-05-08] MEDS ORDERED: 0.9 % Sodium Chloride 1,000 ML IVC ONE (20:12)
[2022-05-08 21:12] LABS: Basophils # 0.1 K/mcL (0.0-0.2); Basophils % 0.5 %; Eosinophils % 0.1 %; Hematocrit 35.1 % (35.3-44.9); Hemoglobin 12.1 g/dL (11.5-15.4); Immature Granulocytes % 0.8 % (0-4); Lymphocytes # 0.8 K/mcL (0.6-4.6); Lymphocytes % 7.2 %; Mean Corpuscular HGB Conc 34.5 g/dL (31.6-35.5); Mean Corpuscular Hemoglobin 31.8 pg (28.0-33.3); Mean Corpuscular Volume 92.4 fL (83.0-100.0); Mean Platelet Volume 10.1 fL (9.4-12.4); Monocytes # 1.1 K/mcL (0.0-1.3); Neutrophils # 8.8 K/mcL (1.6-8.9); Platelet Count 350 K/mcL (140-400); Red Cell Distribution Width 12.3 % (11.5-14.5); Segmented Neutrophils % 81.4 %; White Blood Count 10.8 K/mcL (4.3-11.1)
[2022-05-08 21:36] LABS: Albumin/Globulin Ratio 1.4 (1.1-2.2); Bilirubin,Total 0.8 mg/dL (0.3-1.0); Calcium 10.8 mg/dL (8.6-10.3); Globulin 3.5 g/dL (2.4-3.5); Magnesium 1.3 mg/dL (1.6-2.6); Potassium 4.4 mEq/L (3.5-5.1); Total Protein 8.5 g/dL (6.4-8.9)
[2022-05-08] MEDS ORDERED: Naloxone 0.4 MG/ML INJ IVP PRN (23:21)
[2022-05-08] MEDS ORDERED: Ondansetron 4 MG/2 ML VIAL IVP PRN (23:21)
[2022-05-08] MEDS ORDERED: Acetaminophen 325 MG TABLET PO PRN (23:21)
[2022-05-09 00:26] LABS: Bacteria,Urine Few per hpf (None-Few); Bilirubin,Urine Negative (Negative); Blood,Urine Trace (Negative); Clarity,Urine Turbid (Clear); Color,Urine Yellow (Yellow); Glucose,Urine (UA) Normal (Normal); Hyaline Casts,Urine Many per lpf (None Seen); Ketones,Urine Trace mg/dL (Negative); Leukocyte Esterase,Urine Negative (Negative); Mucus,Urine Few per lpf (None-Few); Nitrite,Urine Negative (Negative); PH,Urine 5.5 pH Units (5.0-8.0); Protein,Urine 50 mg/dL (Neg-Trace); RBC,Urine 0-3 per hpf (0-3); Specific Gravity,Urine 1.013 (1.010-1.025); Squamous Epithelial Cell,Urine Moderate per hpf (None-Few); Urobilinogen,Urine Normal (Normal)
[2022-05-09 00:33] LABS: Protein/Creatinine Ratio,Urine 0.53 mg/mg (0.00-0.20); Sodium, Urine 49.9 mEq/L
[2022-05-09] MEDS: 0.9 % Sodium Chloride 1,000 ML IVC SCH ×2 (00:35→13:10)
[2022-05-09 01:34] LABS: Hematocrit 31.4 % (35.3-44.9); Hemoglobin 10.9 g/dL (11.5-15.4); Mean Corpuscular HGB Conc 34.7 g/dL (31.6-35.5); Mean Corpuscular Hemoglobin 32.4 pg (28.0-33.3); Mean Corpuscular Volume 93.5 fL (83.0-100.0); Mean Platelet Volume 9.9 fL (9.4-12.4); Platelet Count 304 K/mcL (140-400); Red Blood Count 3.36 M/mcL (3.82-4.97); Red Cell Distribution Width 12.3 % (11.5-14.5); White Blood Count 10.5 K/mcL (4.3-11.1)
[2022-05-09 01:53] LABS: Calcium 9.3 mg/dL (8.6-10.3)
[2022-05-09 01:54] LABS: Calcium 9.4 mg/dL (8.6-10.3); Potassium 4.1 mEq/L (3.5-5.1)
[2022-05-09] MEDS ORDERED: amLODIPine 5 MG TABLET PO SCH (09:00)
[2022-05-09] MEDS: Multivit/Ca/Min/Fe/FA 1 TAB TABLET PO SCH (09:15)
[2022-05-09] MEDS: Metoprolol XL (24 HR) Succ 50 MG TAB.ER.24H PO SCH (09:15)
[2022-05-10 05:39] LABS: Basophils # 0.1 K/mcL (0.0-0.2); Basophils % 0.7 %; Eosinophils # 0.1 K/mcL (0.0-0.6); Eosinophils % 0.6 %; Hematocrit 25.9 % (35.3-44.9); Immature Granulocytes % 0.7 % (0-4); Lymphocytes # 0.7 K/mcL (0.6-4.6); Mean Corpuscular HGB Conc 34.4 g/dL (31.6-35.5); Mean Corpuscular Hemoglobin 31.9 pg (28.0-33.3); Mean Corpuscular Volume 92.8 fL (83.0-100.0); Mean Platelet Volume 10.3 fL (9.4-12.4); Monocytes # 0.8 K/mcL (0.0-1.3); Monocytes % 9.5 %; Neutrophils # 6.5 K/mcL (1.6-8.9); Platelet Count 250 K/mcL (140-400); Red Blood Count 2.79 M/mcL (3.82-4.97); Red Cell Distribution Width 12.3 % (11.5-14.5); Segmented Neutrophils % 79.5 %; White Blood Count 8.2 K/mcL (4.3-11.1)
[2022-05-10 05:43] LABS: Hemoglobin 8.9 g/dL (11.5-15.4)
[2022-05-10 06:47] LABS: Albumin 3.6 g/dL (3.5-5.7); Albumin/Globulin Ratio 1.5 (1.1-2.2); Bilirubin,Total 0.6 mg/dL (0.3-1.0); Calcium 7.6 mg/dL (8.6-10.3); Globulin 2.4 g/dL (2.4-3.5); Potassium 3.4 mEq/L (3.5-5.1)
[2022-05-10] MEDS: Metoprolol XL (24 HR) Succ 50 MG TAB.ER.24H PO SCH (08:30)
[2022-05-10] MEDS: Multivit/Ca/Min/Fe/FA 1 TAB TABLET PO SCH (08:30)
[2022-05-10 11:02] VITALS: BP 113/58; PULSE 64; TEMP 97.8; O2SAT 97
== END 2022-05-10 14:15 | disposition home or self-care (01) ==
LOC: 3BNU 17:47 → EMEROOARM 17:47 → SUATTDRO 23:42 → 3BNU 05-09 00:18
PROVIDERS: ADMIT Internal Medicine; ATTEND Nurse Practitioner

== ENCOUNTER 2022-05-19 13:34 | Inpatient (IN) ==
[2022-05-19] MEDS ORDERED: Aspirin 325 MG TABLET PO ONE (14:14)
[2022-05-19 14:41] LABS: Basophils # 0.1 K/mcL (0.0-0.2); Basophils % 0.5 %; Eosinophils % 0.2 %; Hematocrit 32.5 % (35.3-44.9); Hemoglobin 11.2 g/dL (11.5-15.4); Immature Granulocytes % 0.5 % (0-4); Lymphocytes # 0.8 K/mcL (0.6-4.6); Lymphocytes % 6.9 %; Mean Corpuscular HGB Conc 34.5 g/dL (31.6-35.5); Mean Corpuscular Hemoglobin 32.1 pg (28.0-33.3); Mean Corpuscular Volume 93.1 fL (83.0-100.0); Mean Platelet Volume 10.1 fL (9.4-12.4); Monocytes # 0.8 K/mcL (0.0-1.3); Monocytes % 7.2 %; Neutrophils # 9.3 K/mcL (1.6-8.9); Platelet Count 299 K/mcL (140-400); Red Blood Count 3.49 M/mcL (3.82-4.97); Red Cell Distribution Width 12.9 % (11.5-14.5); Segmented Neutrophils % 84.7 %
[2022-05-19 14:48] LABS: Prothrombin Time 10.8 Seconds (9.4-12.1)
[2022-05-19 14:51] LABS: Activated Partial Thrombo Time 47.6 Seconds (26.0-36.0)
[2022-05-19] MEDS ORDERED: Iopamidol - 370 500 ML MLS IVP ONE (15:02)
[2022-05-19 15:04] LABS: Albumin 4.6 g/dL (3.5-5.7); Albumin/Globulin Ratio 1.4 (1.1-2.2); Bilirubin,Direct 0.2 mg/dL (0.0-0.2); Bilirubin,Indirect 0.6 mg/dL (0.0-1.0); Bilirubin,Total 0.8 mg/dL (0.3-1.0); Calcium 9.8 mg/dL (8.6-10.3); Globulin 3.4 g/dL (2.4-3.5); Potassium 3.8 mEq/L (3.5-5.1); Troponin I 0.03 ng/mL (< 0.04)
[2022-05-19] MEDS ORDERED: *HR* Heparin 5,000 UNIT/ML VIAL IVP ONE (16:00)
[2022-05-19] MEDS ORDERED: Heparin 25,000UNIT/250ML 1/2NS 25,000 UNIT/250 ML IV.SOLN IVC SCH (16:00)
[2022-05-19] MEDS ORDERED: *HR* Heparin 5,000 UNIT/ML VIAL IVP PRN ×2 (16:00)
[2022-05-19] MEDS ORDERED: Ondansetron 4 MG/2 ML VIAL IVP PRN (17:10)
[2022-05-19] MEDS ORDERED: Naloxone 0.4 MG/ML INJ IVP PRN (17:10)
[2022-05-19] MEDS ORDERED: Melatonin 3 MG TABLET PO PRN (17:10)
[2022-05-19] MEDS ORDERED: Perflutren Lipid Microsphere 1.3 ML in 0.9 % Sodium Chloride 8.7 ML IVP PRN (17:14)
[2022-05-19] MEDS ORDERED: Sodium Bicarbonate 75 MEQ in 0.45 % Sodium Chloride 1,000 ML IVC SCH (17:30)
[2022-05-20 04:23] LABS: Estimated Average Glucose 114 mg/dl; Hemoglobin A1C 5.6 %
[2022-05-20 04:32] LABS: Calcium 9.1 mg/dL (8.6-10.3); Potassium 3.7 mEq/L (3.5-5.1)
[2022-05-20 04:33] LABS: Magnesium 1.2 mg/dL (1.6-2.6)
[2022-05-20] MEDS: Metoprolol XL (24 HR) Succ 50 MG TAB.ER.24H PO SCH (08:16)
[2022-05-20] MEDS: Cyanocobalamin (B-12) 1,000 MCG TABLET PO SCH (08:16)
[2022-05-20] MEDS: Multivit/Ca/Min/Fe/FA 1 TAB TABLET PO SCH (08:17)
[2022-05-20] MEDS: Sodium Bicarbonate 75 MEQ in 0.45 % Sodium Chloride 1,000 ML IVC SCH ×2 (12:24→23:18)
[2022-05-20 16:48] LABS: Albumin 3.6 g/dL (3.5-5.7); Albumin/Globulin Ratio 1.2 (1.1-2.2); Bilirubin,Total 0.5 mg/dL (0.3-1.0); Calcium 9.3 mg/dL (8.6-10.3); Potassium 3.3 mEq/L (3.5-5.1); Total Protein 6.6 g/dL (6.4-8.9); Uric Acid 8.9 mg/dL (2.3-7.6)
[2022-05-20 17:31] LABS: Basophils % 0.4 %; Eosinophils % 0.3 %; Immature Granulocytes % 0.4 % (0-4); Lymphocytes # 0.7 K/mcL (0.6-4.6); Lymphocytes % 7.2 %; Mean Corpuscular HGB Conc 34.6 g/dL (31.6-35.5); Mean Corpuscular Hemoglobin 31.6 pg (28.0-33.3); Mean Corpuscular Volume 91.2 fL (83.0-100.0); Mean Platelet Volume 10.4 fL (9.4-12.4); Monocytes # 0.7 K/mcL (0.0-1.3); Monocytes % 6.9 %; Neutrophils # 8.3 K/mcL (1.6-8.9); Platelet Count 232 K/mcL (140-400); Red Blood Count 2.85 M/mcL (3.82-4.97); Red Cell Distribution Width 12.8 % (11.5-14.5); Segmented Neutrophils % 84.8 %; White Blood Count 9.7 K/mcL (4.3-11.1)
[2022-05-20] MEDS: *HR* Heparin 5,000 UNIT/ML VIAL SQ SCH (17:33)
[2022-05-20 18:13] LABS: Bilirubin,Urine Negative (Negative); Blood,Urine Negative (Negative); Clarity,Urine Turbid (Clear); Color,Urine Yellow (Yellow); Glucose,Urine (UA) Normal (Normal); Hyaline Casts,Urine Many per lpf (None Seen); Ketones,Urine Trace mg/dL (Negative); Leukocyte Esterase,Urine Negative (Negative); Mucus,Urine Few per lpf (None-Few); Nitrite,Urine Negative (Negative); PH,Urine 5.5 pH Units (5.0-8.0); Protein,Urine 30 mg/dL (Neg-Trace); RBC,Urine 0-3 per hpf (0-3); Specific Gravity,Urine 1.015 (1.010-1.025); Squamous Epithelial Cell,Urine Moderate per hpf (None-Few); Urobilinogen,Urine Normal (Normal); WBC,Urine 0-3 per hpf (0-3)
[2022-05-20 19:04] LABS: Sodium, Urine 14.4 mEq/L
[2022-05-21 03:58] LABS: Basophils % 0.4 %; Eosinophils # 0.1 K/mcL (0.0-0.6); Eosinophils % 0.7 %; Hematocrit 22.6 % (35.3-44.9); Immature Granulocytes % 0.4 % (0-4); Lymphocytes # 0.9 K/mcL (0.6-4.6); Lymphocytes % 12.6 %; Mean Corpuscular HGB Conc 35.4 g/dL (31.6-35.5); Mean Corpuscular Volume 90.4 fL (83.0-100.0); Mean Platelet Volume 9.9 fL (9.4-12.4); Monocytes # 0.4 K/mcL (0.0-1.3); Monocytes % 6.3 %; Neutrophils # 5.5 K/mcL (1.6-8.9); Platelet Count 186 K/mcL (140-400); Red Cell Distribution Width 12.6 % (11.5-14.5); Segmented Neutrophils % 79.6 %
[2022-05-21 04:15] LABS: Albumin 3.2 g/dL (3.5-5.7); Albumin/Globulin Ratio 1.3 (1.1-2.2); Bilirubin,Total 0.5 mg/dL (0.3-1.0); Calcium 8.4 mg/dL (8.6-10.3); Globulin 2.4 g/dL (2.4-3.5); Magnesium 2.9 mg/dL (1.6-2.6); Phosphorous 2.3 mg/dL (2.7-4.5); Total Protein 5.6 g/dL (6.4-8.9)
[2022-05-21] MEDS: *HR* Heparin 5,000 UNIT/ML VIAL SQ SCH ×2 (05:30→17:34)
[2022-05-21] MEDS: Multivit/Ca/Min/Fe/FA 1 TAB TABLET PO SCH (08:20)
[2022-05-21] MEDS: 0.9 % Sodium Chloride 1,000 ML IVC SCH ×2 (08:20→21:52)
[2022-05-21] MEDS: Cyanocobalamin (B-12) 1,000 MCG TABLET PO SCH (08:20)
[2022-05-21] MEDS: Metoprolol XL (24 HR) Succ 50 MG TAB.ER.24H PO SCH (08:20)
[2022-05-22] MEDS: *HR* Heparin 5,000 UNIT/ML VIAL SQ SCH (05:34)
[2022-05-22 05:55] LABS: Basophils % 0.6 %; Eosinophils # 0.1 K/mcL (0.0-0.6); Eosinophils % 1.3 %; Hematocrit 22.3 % (35.3-44.9); Hemoglobin 7.6 g/dL (11.5-15.4); Immature Granulocytes % 0.4 % (0-4); Lymphocytes % 14.6 %; Mean Corpuscular HGB Conc 34.1 g/dL (31.6-35.5); Mean Corpuscular Hemoglobin 31.7 pg (28.0-33.3); Mean Corpuscular Volume 92.9 fL (83.0-100.0); Monocytes # 0.6 K/mcL (0.0-1.3); Monocytes % 7.9 %; Neutrophils # 5.3 K/mcL (1.6-8.9); Platelet Count 185 K/mcL (140-400); Red Cell Distribution Width 13.2 % (11.5-14.5); Segmented Neutrophils % 75.2 %
[2022-05-22 06:18] LABS: Albumin 3.3 g/dL (3.5-5.7); Albumin/Globulin Ratio 1.6 (1.1-2.2); Bilirubin,Total 0.5 mg/dL (0.3-1.0); Calcium 7.9 mg/dL (8.6-10.3); Globulin 2.1 g/dL (2.4-3.5); Magnesium 1.9 mg/dL (1.6-2.6); Phosphorous 2.3 mg/dL (2.7-4.5); Potassium 3.5 mEq/L (3.5-5.1); Total Protein 5.4 g/dL (6.4-8.9)
[2022-05-22 06:39] LABS: Folate 12.1 ng/mL (3.0-16.0)
[2022-05-22] MEDS: Cyanocobalamin (B-12) 1,000 MCG TABLET PO SCH (08:58)
[2022-05-22] MEDS: Multivit/Ca/Min/Fe/FA 1 TAB TABLET PO SCH (08:58)
[2022-05-22] MEDS: Metoprolol XL (24 HR) Succ 50 MG TAB.ER.24H PO SCH (08:58)
[2022-05-22 11:31] VITALS: BP 104/54; PULSE 67; TEMP 97.9; O2SAT 97
[2022-05-22] MEDS: 0.9 % Sodium Chloride 1,000 ML IVC SCH (11:38)
== END 2022-05-22 13:34 | disposition home or self-care (01) | DRG 683 ==
LOC: EMEROOARM 13:34 → 3ANU 13:34 → SUATTDRO 16:32 → 3ANU 16:53 → SUATTDRO 05-20 14:15
PROVIDERS: ADMIT Student in an Organized Health Care Education/Training Program; ATTEND Family Medicine

== ENCOUNTER 2022-06-12 16:28 | Inpatient (IN) ==
[2022-06-12] MEDS ORDERED: 0.9 % Sodium Chloride 1,000 ML IVC ONE (19:33)
[2022-06-12 20:38] LABS: VBG Ionized Calcium 1.16 mmol/L (1.15-1.35)
[2022-06-12 20:43] LABS: Basophils % 0.3 %; Hematocrit 32.2 % (35.3-44.9); Hemoglobin 11.3 g/dL (11.5-15.4); Immature Granulocytes % 0.9 % (0-4); Lymphocytes # 0.7 K/mcL (0.6-4.6); Lymphocytes % 8.3 %; Mean Corpuscular HGB Conc 35.1 g/dL (31.6-35.5); Mean Corpuscular Volume 91.2 fL (83.0-100.0); Mean Platelet Volume 10.1 fL (9.4-12.4); Monocytes # 0.8 K/mcL (0.0-1.3); Monocytes % 9.2 %; Neutrophils # 7.3 K/mcL (1.6-8.9); Platelet Count 380 K/mcL (140-400); Red Blood Count 3.53 M/mcL (3.82-4.97); Red Cell Distribution Width 13.3 % (11.5-14.5); Segmented Neutrophils % 81.3 %
[2022-06-12 21:20] LABS: Calcium 10.5 mg/dL (8.6-10.3); Magnesium 1.4 mg/dL (1.6-2.6); Phosphorous 8.2 mg/dL (2.7-4.5); Potassium 4.4 mEq/L (3.5-5.1); Troponin I 0.06 ng/mL (< 0.04)
[2022-06-12 21:29] LABS: Thyroid Stimulating Hormone 4.304 mcIU/mL (0.340-5.600)
[2022-06-12] MEDS ORDERED: Aspirin 81 MG TAB.CHEW PO STA (21:51)
[2022-06-12] MEDS ORDERED: Ondansetron 4 MG/2 ML VIAL IVP PRN (22:29)
[2022-06-12] MEDS ORDERED: Naloxone 0.4 MG/ML INJ IVP PRN (22:29)
[2022-06-12] MEDS ORDERED: Acetaminophen 325 MG TABLET PO PRN (22:29)
[2022-06-12] MEDS ORDERED: Melatonin 3 MG TABLET PO PRN (22:29)
[2022-06-12] MEDS ORDERED: 0.9 % Sodium Chloride 1,000 ML IVC SCH (23:30)
[2022-06-13] MEDS ORDERED: *HR* Heparin 5,000 UNIT/ML VIAL IVP PRN ×2 (00:26)
[2022-06-13] MEDS ORDERED: *HR* Heparin 5,000 UNIT/ML VIAL IVP ONE (00:26)
[2022-06-13] MEDS ORDERED: Heparin 25,000UNIT/250ML 1/2NS 25,000 UNIT/250 ML IV.SOLN IVC SCH (00:30)
[2022-06-13 01:19] LABS: Influenza A PCR Negative (Negative); Influenza B PCR Negative (Negative); Resp. Syncytial Virus PCR Negative (Negative)
[2022-06-13 01:22] LABS: SARS-CoV-2 by PCR (In House) Negative (Negative)
[2022-06-13 03:04] LABS: Basophils % 0.3 %; Hematocrit 30.6 % (35.3-44.9); Hemoglobin 10.5 g/dL (11.5-15.4); Immature Granulocytes % 0.7 % (0-4); Lymphocytes # 0.7 K/mcL (0.6-4.6); Lymphocytes % 8.1 %; Mean Corpuscular HGB Conc 34.3 g/dL (31.6-35.5); Mean Corpuscular Hemoglobin 31.3 pg (28.0-33.3); Mean Corpuscular Volume 91.1 fL (83.0-100.0); Mean Platelet Volume 10.3 fL (9.4-12.4); Monocytes % 10.5 %; Neutrophils # 7.4 K/mcL (1.6-8.9); Platelet Count 327 K/mcL (140-400); Red Blood Count 3.36 M/mcL (3.82-4.97); Red Cell Distribution Width 13.2 % (11.5-14.5); Segmented Neutrophils % 80.4 %; White Blood Count 9.2 K/mcL (4.3-11.1)
[2022-06-13 03:08] LABS: Calcium 9.9 mg/dL (8.6-10.3); Magnesium 1.4 mg/dL (1.6-2.6); Phosphorous 6.9 mg/dL (2.7-4.5); Potassium 4.9 mEq/L (3.5-5.1)
[2022-06-13 03:12] LABS: Prothrombin Time 11.5 Seconds (9.4-12.1)
[2022-06-13] MEDS ORDERED: 0.9 % Sodium Chloride 1,000 ML IVC SCH (04:06)
[2022-06-13] MEDS ORDERED: Sodium Bicarbonate 150 MEQ in 0.45 % Sodium Chloride 1,000 ML IVC SCH (07:27)
[2022-06-13] MEDS ORDERED: Cyanocobalamin (B-12) 1,000 MCG TABLET PO SCH (09:00)
[2022-06-13] MEDS ORDERED: Metoprolol XL (24 HR) Succ 50 MG TAB.ER.24H PO SCH (09:00)
[2022-06-13 09:07] LABS: Potassium 4.4 mEq/L (3.5-5.1)
[2022-06-13 14:53] VITALS: O2SAT 99
[2022-06-13 20:41] VITALS: BP 104/52; PULSE 66; TEMP 97.7
== END 2022-06-14 00:30 | disposition left against medical advice (07) | DRG 683 ==
LOC: EMEROOARM 16:28 → 3ANU 16:28 → SUATTDRO 23:29 → 3ANU 06-13 00:32
PROVIDERS: ADMIT Internal Medicine; ATTEND Internal Medicine

== ENCOUNTER 2022-06-28 13:20 | Observation (INO) ==
[2022-06-28 16:06] LABS: Basophils % 0.6 %; Eosinophils % 0.1 %; Hematocrit 28.3 % (35.3-44.9); Immature Granulocytes % 0.7 % (0-4); Lymphocytes # 0.5 K/mcL (0.6-4.6); Lymphocytes % 7.4 %; Mean Corpuscular HGB Conc 35.3 g/dL (31.6-35.5); Mean Corpuscular Hemoglobin 32.3 pg (28.0-33.3); Mean Corpuscular Volume 91.3 fL (83.0-100.0); Mean Platelet Volume 10.5 fL (9.4-12.4); Monocytes # 0.6 K/mcL (0.0-1.3); Neutrophils # 5.9 K/mcL (1.6-8.9); Platelet Count 233 K/mcL (140-400); Red Cell Distribution Width 13.6 % (11.5-14.5); Segmented Neutrophils % 82.2 %; White Blood Count 7.1 K/mcL (4.3-11.1)
[2022-06-28 16:12] LABS: Alanine Aminotransferase 16 Units/L (7-52); Albumin 4.2 g/dL (3.5-5.7); Albumin/Globulin Ratio 1.4 (1.1-2.2); Alkaline Phosphatase 60 Units/L (34-104); Aspartate Amino Transferase 26 Units/L (13-39); BUN/Creatinine Ratio 14 (6-26); Bilirubin,Total 0.9 mg/dL (0.3-1.0); Blood Urea Nitrogen 25 mg/dL (8-23); Calcium 9.7 mg/dL (8.6-10.3); Carbon Dioxide 16 mEq/L (23-29); Chloride 80 mEq/L (98-107); Globulin 2.9 g/dL (2.4-3.5); Glucose 82 mg/dL (70-105); Osmolality,Calculated 245 (280-300); Potassium 4.1 mEq/L (3.5-5.1); Sodium 116 mEq/L (136-145); Total Protein 7.1 g/dL (6.4-8.9); Troponin I < 0.03 ng/mL (< 0.04)
[2022-06-28] MEDS ORDERED: Naloxone 0.4 MG/ML INJ IVP PRN (17:38)
[2022-06-28] MEDS ORDERED: Acetaminophen 325 MG TABLET PO PRN (17:38)
[2022-06-28] MEDS ORDERED: Ondansetron 4 MG/2 ML VIAL IVP PRN (17:38)
[2022-06-28 21:58] LABS: Calcium 9.7 mg/dL (8.6-10.3); Potassium 4.2 mEq/L (3.5-5.1)
[2022-06-28 23:41] LABS: Bilirubin,Urine Negative (Negative); Blood,Urine Negative (Negative); Clarity,Urine Clear (Clear); Color,Urine Light-Yellow (Yellow); Glucose,Urine (UA) Normal (Normal); Ketones,Urine Trace mg/dL (Negative); Leukocyte Esterase,Urine Negative (Negative); Nitrite,Urine Negative (Negative); PH,Urine 5.5 pH Units (5.0-8.0); Protein,Urine Trace mg/dL (Neg-Trace); Urobilinogen,Urine Normal (Normal)
[2022-06-28 23:54] LABS: Creatinine,Urine 127 mg/dL; Sodium, Urine < 10.0 mEq/L
[2022-06-29] MEDS: 0.9 % Sodium Chloride 1,000 ML IVC SCH ×2 (01:19→14:49)
[2022-06-29 01:46] LABS: Basophils % 0.6 %; Eosinophils % 0.5 %; Hematocrit 26.1 % (35.3-44.9); Hemoglobin 9.2 g/dL (11.5-15.4); Lymphocytes # 0.8 K/mcL (0.6-4.6); Lymphocytes % 12.2 %; Mean Corpuscular HGB Conc 35.2 g/dL (31.6-35.5); Mean Corpuscular Hemoglobin 32.2 pg (28.0-33.3); Mean Corpuscular Volume 91.3 fL (83.0-100.0); Mean Platelet Volume 10.5 fL (9.4-12.4); Monocytes # 0.7 K/mcL (0.0-1.3); Monocytes % 10.8 %; Neutrophils # 4.7 K/mcL (1.6-8.9); Platelet Count 224 K/mcL (140-400); Red Blood Count 2.86 M/mcL (3.82-4.97); Red Cell Distribution Width 13.5 % (11.5-14.5); Segmented Neutrophils % 74.9 %; White Blood Count 6.3 K/mcL (4.3-11.1)
[2022-06-29 02:08] LABS: Calcium 9.3 mg/dL (8.6-10.3); Magnesium 1.1 mg/dL (1.6-2.6); Phosphorous 3.3 mg/dL (2.7-4.5); Potassium 3.9 mEq/L (3.5-5.1)
[2022-06-29] MEDS: *HR* Heparin 5,000 UNIT/ML VIAL SQ SCH ×2 (06:47→18:04)
[2022-06-29] MEDS: Metoprolol XL (24 HR) Succ 50 MG TAB.ER.24H PO SCH ×2 (07:51→08:15)
[2022-06-29] MEDS: Multivit/Ca/Min/Fe/FA 1 TAB TABLET PO SCH (07:51)
[2022-06-29] MEDS: Cyanocobalamin (B-12) 1,000 MCG TABLET PO SCH (07:51)
[2022-06-29 08:35] LABS: Calcium 9.1 mg/dL (8.6-10.3); Potassium 3.9 mEq/L (3.5-5.1)
[2022-06-29 12:52] LABS: Creatinine,Urine 65 mg/dL; Microalbumin,Urine < 7 mg/L; Protein/Creatinine Ratio,Urine 0.14 mg/mg (0.00-0.20)
[2022-06-29 17:41] LABS: Calcium 8.7 mg/dL (8.6-10.3); Potassium 3.7 mEq/L (3.5-5.1)
[2022-06-29 22:12] LABS: Calcium 8.3 mg/dL (8.6-10.3); Potassium 3.6 mEq/L (3.5-5.1)
[2022-06-30 04:55] LABS: Calcium 8.9 mg/dL (8.6-10.3); Potassium 3.5 mEq/L (3.5-5.1)
[2022-06-30] MEDS: *HR* Heparin 5,000 UNIT/ML VIAL SQ SCH (05:45)
[2022-06-30] MEDS: Metoprolol XL (24 HR) Succ 50 MG TAB.ER.24H PO SCH (07:28)
[2022-06-30] MEDS: Cyanocobalamin (B-12) 1,000 MCG TABLET PO SCH (07:28)
[2022-06-30] MEDS: Multivit/Ca/Min/Fe/FA 1 TAB TABLET PO SCH (07:33)
[2022-06-30 07:37] VITALS: BP 108/60; PULSE 77; TEMP 97.7; O2SAT 99
== END 2022-06-30 11:30 | disposition home or self-care (01) ==
LOC: 2NENU 13:20 → EMEROOARM 13:20 → 2NENU 18:45
PROVIDERS: ADMIT Internal Medicine; ATTEND Internal Medicine

== ENCOUNTER 2022-07-12 16:45 | Observation (INO) ==
[2022-07-12] MEDS ORDERED: Melatonin 3 MG TABLET PO PRN (19:38)
[2022-07-12] MEDS ORDERED: Naloxone 0.4 MG/ML INJ IVP PRN (19:38)
[2022-07-12] MEDS ORDERED: Acetaminophen 325 MG TABLET PO PRN (19:38)
[2022-07-12] MEDS ORDERED: Ondansetron ODT 4 MG TAB.RAPDIS SL PRN (19:38)
[2022-07-12] MEDS ORDERED: Sodium Bicarbonate 75 MEQ in 0.45 % Sodium Chloride 1,000 ML IVC SCH (19:45)
[2022-07-12 20:50] LABS: Calcium 8.5 mg/dL (8.6-10.3)
[2022-07-12 23:02] LABS: VBG HCO3 15 mEq/L (21-27); VBG PCO2 29 mmHg (41-51); VBG PH 7.32 pH Units (7.32-7.42); VBG PO2 162 mmHg (25-50)
[2022-07-13 00:41] LABS: Bacteria,Urine Few per hpf (None-Few); Bilirubin,Urine Negative (Negative); Blood,Urine Negative (Negative); Clarity,Urine Turbid (Clear); Color,Urine Light-Yellow (Yellow); Glucose,Urine (UA) 50 mg/dL (Normal); Hyaline Casts,Urine Many per lpf (None Seen); Ketones,Urine 10 mg/dL (Negative); Leukocyte Esterase,Urine Trace (Negative); Mucus,Urine Few per lpf (None-Few); Nitrite,Urine Negative (Negative); PH,Urine 5.5 pH Units (5.0-8.0); Protein,Urine Trace mg/dL (Neg-Trace); RBC,Urine 0-3 per hpf (0-3); Specific Gravity,Urine 1.008 (1.010-1.025); Squamous Epithelial Cell,Urine Moderate per hpf (None-Few); Urobilinogen,Urine Normal (Normal)
[2022-07-13 03:16] LABS: Potassium 2.4 mEq/L (3.5-5.1)
[2022-07-13 03:21] LABS: Calcium 4.8 mg/dL (8.6-10.3)
[2022-07-13 03:51] LABS: Basophils % 0.4 %; Eosinophils % 0.1 %; Hematocrit 24.1 % (35.3-44.9); Hemoglobin 8.5 g/dL (11.5-15.4); Immature Granulocytes % 0.6 % (0-4); Lymphocytes # 1.4 K/mcL (0.6-4.6); Lymphocytes % 16.5 %; Mean Corpuscular HGB Conc 35.3 g/dL (31.6-35.5); Mean Corpuscular Hemoglobin 32.2 pg (28.0-33.3); Mean Corpuscular Volume 91.3 fL (83.0-100.0); Mean Platelet Volume 9.8 fL (9.4-12.4); Monocytes # 0.6 K/mcL (0.0-1.3); Monocytes % 7.3 %; Neutrophils # 6.3 K/mcL (1.6-8.9); Platelet Count 239 K/mcL (140-400); Red Blood Count 2.64 M/mcL (3.82-4.97); Red Cell Distribution Width 14.1 % (11.5-14.5); Segmented Neutrophils % 75.1 %; White Blood Count 8.4 K/mcL (4.3-11.1)
[2022-07-13 04:08] LABS: Magnesium 1.1 mg/dL (1.6-2.6); Phosphorous 1.9 mg/dL (2.7-4.5)
[2022-07-13 04:10] LABS: Prothrombin Time 11.6 Seconds (9.4-12.1)
[2022-07-13 04:15] LABS: Calcium 8.2 mg/dL (8.6-10.3); Potassium 3.8 mEq/L (3.5-5.1)
[2022-07-13] MEDS ORDERED: Potassium Phosphate 44 MEQ in D5% in Water 250 ML IVPB ONE (04:21)
[2022-07-13] MEDS: Cyanocobalamin (B-12) 1,000 MCG TABLET PO SCH (08:57)
[2022-07-13] MEDS: Multivit/Ca/Min/Fe/FA 1 TAB TABLET PO SCH (08:57)
[2022-07-13] MEDS: Metoprolol XL (24 HR) Succ 50 MG TAB.ER.24H PO SCH (08:57)
[2022-07-13 09:25] LABS: Hematocrit 23.2 % (35.3-44.9); Hemoglobin 8.1 g/dL (11.5-15.4)
[2022-07-13 09:44] LABS: Calcium 8.3 mg/dL (8.6-10.3)
[2022-07-13] MEDS ORDERED: D5% in 0.9% NACL 1,000 ML IVC SCH (12:45)
[2022-07-13 13:42] LABS: Calcium 8.1 mg/dL (8.6-10.3); Potassium 4.1 mEq/L (3.5-5.1)
[2022-07-14 03:40] LABS: Calcium 7.9 mg/dL (8.6-10.3); Magnesium 1.6 mg/dL (1.6-2.6); Phosphorous 2.8 mg/dL (2.7-4.5); Potassium 3.4 mEq/L (3.5-5.1)
[2022-07-14] MEDS: Multivit/Ca/Min/Fe/FA 1 TAB TABLET PO SCH (08:43)
[2022-07-14] MEDS: Cyanocobalamin (B-12) 1,000 MCG TABLET PO SCH (08:43)
[2022-07-14] MEDS: Metoprolol XL (24 HR) Succ 50 MG TAB.ER.24H PO SCH (08:43)
[2022-07-14 17:42] LABS: Calcium 8.5 mg/dL (8.6-10.3); Potassium 4.3 mEq/L (3.5-5.1)
[2022-07-14 20:35] VITALS: BP 116/72; PULSE 87; TEMP 98.4; O2SAT 98
== END 2022-07-14 20:24 | disposition home health service (06) ==
LOC: 3NENU → SUATTDRO 18:40
PROVIDERS: ADMIT Internal Medicine; ATTEND Internal Medicine